=== PATIENT | male | born 1945 | race Caucasian/White ===

== ENCOUNTER → 2017-09-12 | Outpatient (CLI) | payer MEDICARE ==
[2017-09-12 13:03] LABS: HCT 36.1 % (39.0-53.0); HGB 12.2 gm/dL (13.0-17.5); MCH 29.9 pg (25.0-35.0); MCHC 33.7 g/dL (31.0-37.0); MCV 88.9 fL (80.0-100.0); Mean Platelet Volume 7.4; Platelet Count 228 k/uL (150-450); RBC 4.06 m/uL (4.30-5.90); RDW 15.4 % (11.5-15.5)
[2017-09-12 19:15] LABS: Iron Saturation 24.16 (15.00-50.00)
[2017-09-12 19:39] LABS: Folate, Serum 19.9 ng/mL
== END | disposition home or self-care (01) ==
LOC: LABWHC1 12:23
PROVIDERS: ATTEND Family Medicine
DX: K42.0 Umbilical hernia with obstruction, without gangrene (principal); D63.8 Anemia in other chronic diseases classified elsewhere; E11.65 Type 2 diabetes mellitus with hyperglycemia; Z12.12 Encounter for screening for malignant neoplasm of rectum
CPT/HCPCS: 36415; 82607; 82728; 82746; 83540; 83550; 85027

== ENCOUNTER 2017-12-13 11:05 | Inpatient (IN) | payer OTHER, MEDICARE ==
[2017-12-13] MEDS ORDERED: SODIUM CHLORIDE 0.9% 1,000 ML IV STA (11:22)
[2017-12-13] MEDS ORDERED: MORPHINE SULFATE 2 MG/ML SYRINGE IVP ONE (11:23)
[2017-12-13] MEDS ORDERED: ONDANSETRON 4 MG/2 ML VIAL IVP STA (11:23)
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
[2017-12-13 12:14] LABS: Basophils % (A) 0 %; Eosinophils % (A) 0 %; HCT 40.8 % (39.0-53.0); HGB 13.1 gm/dL (13.0-17.5); Lymphocytes # (A) 0.6 k/uL (1.0-4.8); Lymphocytes % (A) 5 %; MCHC 32.2 g/dL (31.0-37.0); MCV 93.4 fL (80.0-100.0); Mean Platelet Volume 7.4; Monocytes # (A) 0.5 k/uL (0-1.0); Monocytes % (A) 4 %; Neutrophils # (A) 10.1 k/uL (1.3-7.7); Neutrophils % (A) 89 %; Platelet Count 185 k/uL (150-450); RBC 4.37 m/uL (4.30-5.90); RDW 15.6 % (11.5-15.5); WBC 11.3 k/uL (3.8-10.6)
[2017-12-13] MEDS ORDERED: MORPHINE SULFATE 2 MG/ML SYRINGE IVP STA (12:14)
[2017-12-13 12:17] LABS: INR 1.1 (<1.2); Partial Thromboplastin Time 22.3 sec (22.0-30.0); Prothrombin Time 10.4 sec (9.0-12.0)
[2017-12-13 12:19] LABS: Albumin 4.2 g/dL (3.5-5.0); Amylase 43 U/L (30-110); Anion Gap 16 mmol/L; Carbon Dioxide 24 mmol/L (22-30); Chloride 98 mmol/L (98-107); Glucose 326 mg/dL (74-99); Lipase 34 U/L (23-300); Sodium 138 mmol/L (137-145); Total Protein 7.1 g/dL (6.3-8.2)
[2017-12-13 12:20] LABS: ALT 33 U/L (21-72); AST 29 U/L (17-59); Alkaline Phosphatase 72 U/L (38-126); Blood Urea Nitrogen 21 mg/dL (9-20)
--- NOTE | 2017-12-13 12:31 | XR ---
EXAMINATION TYPE: XR chest 2V DATE OF EXAM: 12/13/2017 HISTORY: abdominal pain. REFERENCE: Previous study dated 12/17/2014. FINDINGS: There is atelectatic change present in the right lower lobe. The lungs are overinflated. Th ere are chronic increased markings. The heart is not enlarged. Pleural spaces are clear. IMPRESSION: ATELECTATIC CHANGE, RIGHT LOWER LOBE.
[2017-12-13] MEDS ORDERED: INSULIN ASPART 100 UNIT/ML 1 ML 10 ML VIAL SQ ONE (12:38)
[2017-12-13 12:58] LABS: Glucose,Whole Blood 373 mg/dL (75-99)
[2017-12-13] MEDS ORDERED: HYDROmorphone 0.5 MG/0.5 ML SYRINGE IVP STA (13:52)
--- NOTE | 2017-12-13 14:08 | XR ---
EXAMINATION TYPE: XR thoracic spine 2V DATE OF EXAM: 12/13/2017 CLINICAL HISTORY: Fall with back pain. TECHNIQUE: Frontal, lateral, and swimmer's view of thoracic spine are obtained. COMPARISON: None. FINDINGS: There are moderate degenerative changes of the thoracic spine with anterior bridging osteop hytes that may relate to diffuse idiopathic skeletal hyperostosis. There is slight osseous deminerali zation. Vertebral bodies maintain normal vertebral body heights. Thoracic spine show satisfactory ali gnment without evidence of acute fracture or dislocation. Visualized ribs are unremarkable. IMPRESSION: No acute fracture or dislocation is seen in the thoracic spine. There is diffuse osseous demineralization, moderate multilevel degenerative change and findings suggesting diffuse idiopathic skeletal hyperostosis.
[2017-12-13 14:30] LABS: VBG PH 7.32 (7.31-7.41)
[2017-12-13 14:33] LABS: Glucose,Whole Blood 299 mg/dL (75-99)
--- NOTE | 2017-12-13 15:19 | CT ---
EXAMINATION TYPE: CT brain cspine wo con DATE OF EXAM: 12/13/2017 COMPARISON: NONE HISTORY: Head and neck pain after trip and fall [address] DLP: 1432.3 mGycm. Automated Exposure Control for Dose Reduction was Utilized. TECHNIQUE: CT scan of the head and cervical spine are performed without contrast. FINDINGS: There is a chronic-appearing CSF attenuated right subdural hygroma with 2 mm of leftward m idline shift. This is overall similar to the prior exam of 2016 although degree of sulcal prominence and cerebral atrophy has progressed. There is no acute intracranial hemorrhage, mass effect, or midli ne shift identified. No hydrocephalus. The globes are intact and the visualized sinuses are clear. Cervical spine is visualized in its entirety from C1 through upper thoracic levels and demonstrates s atisfactory alignment without evidence of acute fracture or dislocation. Prominent vascular groove is noted of C2 on the right without cortical disruption. Moderate multilevel degenerative disc disease is seen as uncovertebral hypertrophy and facet arthropathy with multilevel disc osteophyte complexes. Bridging osteophytes are seen diffusely throughout the cervical spine indicative of diffuse idiopath ic skeletal hyperostosis. Additionally there is calcification of the posterior longitudinal ligament creating moderate spinal canal stenosis from C2 through C4 and mild spinal canal stenosis at C4-C6. P revertebral soft tissue appears within normal limits. The C1-C2 articulation is unremarkable. IMPRESSION: 1. There is no acute fracture or dislocation evident in the cervical spine. 2. No acute intracranial hemorrhage, mass effect, or midline shift is seen. Chronic appearing right s ubdural hygroma with 2 mm leftward midline shift, overall similar to exam of 2016 with progression of cerebral atrophy. 3. Cervical spine degenerative change, diffuse radiographic skeletal hyperostosis, and calcification of the posterior longitudinal ligament creating moderate spinal canal stenosis from C2 through C4 and mild from C4 through C6.
--- NOTE | 2017-12-13 15:33 | CT ---
EXAMINATION TYPE: CT ChestAbdPelvis w con DATE OF EXAM: 12/13/2017 COMPARISON: NONE HISTORY: Back and chest, abdomen, and pelvis bilateral side pain after trip and fall [address] DLP: 2428.9 mGycm. Automated Exposure Control for Dose Reduction was Utilized. CONTRAST: CT scan of the thorax, abdomen and pelvis is performed with IV Contrast, patient injected with 100 mL of Isovue M300. FINDINGS: LUNGS: There is moderate centrilobular emphysematous change. Right upper lobe pulmonary nodule on ser ies 3 image 35 measures 9 mm. This is similar to exam of 08/21/2015 (also 9 mm). Additionally the know n bilobed medial right lung base pulmonary nodule elongates on image 46 and appears similar to the pr ior exam of 2016. There is a trace right pleural effusion and subsegmental bibasilar atelectasis. Chr onic peribronchial cuffing is seen, likely related to reactive airway disease of this patient with un derlying pulmonary emphysema. MEDIASTINUM: There are no greater than 1 cm hilar or mediastinal lymph nodes. No pericardial effusi on is seen. Main pulmonary artery is enlarged measuring 3.8 cm suggestive of underlying pulmonary ar terial hypertension. Moderate three-vessel coronary artery calcifications are seen. Small hiatal [place] is present. LIVER/GB: No significant abnormality is appreciated. No radiopaque calculi within the gallbladder. PANCREAS: Landin-white parenchymal atrophy is noted without ductal dilatation. SPLEEN: No significant abnormality is seen. ADRENALS: No significant abnormality is seen. KIDNEYS: Nonobstructing right renal calculi measure 3 mm in the inferior pole and mid pole. Nonobstru cting 2 mm left renal calculus is noted. Bilateral nonspecific perinephric fat stranding is seen. Rig ht inferior pole renal cyst and too small to accurately characterize upper pole renal lesion are seen . BOWEL: No dilatation of large or small bowel. No evidence of obstruction. Moderate amount retained ri ght hemicolonic stool. GENITAL ORGANS: Prostate gland is not enlarged although containing central zone calcifications. LYMPH NODES: No greater than 1cm abdominal or pelvic lymph nodes are appreciated. OSSEOUS STRUCTURES: No displaced fracture is seen. There is diffuse bridging of the vertebral bodies throughout the thoracolumbar spine compatible with diffuse idiopathic skeletal hyperostosis. Addition ally moderate to severe multilevel degenerative changes of the spine are present. OTHER: Extensive vascular calcifications are present of the abdominal aorta and its branches which is nonenlarged. There is diastases recti. IMPRESSION: 1. No acute osseous fracture, abnormal fluid collection, or evidence of solid organ injury in the tho rax, abdomen, or pelvis. 2. Stable right-sided pulmonary nodules in comparison to exam of 2016. However given moderate backgro und emphysema (high-risk patient) continued follow-up with CT thorax in 12 months is recommended to e nsure stability. 3. Bilateral nonobstructing renal calculi. 4. Trace right pleural effusion.
[2017-12-13] MEDS ORDERED: ASPIRIN 81 MG PO STA (15:54)
[2017-12-13] MEDS ORDERED: NITROGLYCERIN SL TABS 0.4 MG TAB SUBLINGUAL PRN (16:07)
[2017-12-13] MEDS ORDERED: MORPHINE SULFATE 2 MG/ML SYRINGE IV PRN (16:07)
[2017-12-13] MEDS ORDERED: hydrALAZINE HCL 20 MG/ML 1 ML VIAL IVP STA (16:17)
[2017-12-13 17:42] VITALS: BMI 36.6
[2017-12-13 18:18] LABS: Creatine Kinase MB 2.2 ng/mL (0.0-2.4)
[2017-12-13 18:21] LABS: Troponin I 0.039 ng/mL (0.000-0.034)
[2017-12-13] MEDS ORDERED: ALBUTEROL NEBULIZED 2.5 MG/3 ML INHALATION PRN (18:59)
[2017-12-13] MEDS ORDERED: KETOROLAC 30 MG/ML 1 ML VIAL IVP PRN (19:04)
[2017-12-13] MEDS: IPRATROPIUM-ALBUTEROL 3 ML NEB INHALATION PRN (20:28)
[2017-12-13] MEDS: SYMBICORT 160-4.5 MCG INHALER INHALATION SCH (20:29)
[2017-12-13] MEDS: ATORVASTATIN 20 MG TAB PO SCH (20:53)
[2017-12-13] MEDS: DOCUSATE 100 MG CAP PO SCH (20:53)
[2017-12-13] MEDS: METOPROLOL TARTRATE 25 MG TAB PO SCH (20:53)
[2017-12-13] MEDS: LATANOPROST 0.005% OPHTH DROPS 2.5 ML BTL BOTH EYES SCH (20:54)
[2017-12-13] MEDS: BRIMONIDINE TARTRATE 0.2% DROPS 5 ML BTL BOTH EYES SCH (20:55)
[2017-12-13] MEDS: DORZOLAMIDE HCL 2% DROPS 10 ML BTL BOTH EYES SCH (20:55)
[2017-12-13] MEDS: MORPHINE SULFATE 2 MG/ML SYRINGE IV PRN ×2 (21:05→23:47)
[2017-12-13 21:23] LABS: Glucose,Whole Blood 289 mg/dL (75-99)
[2017-12-13] MEDS: INSULIN DETEMIR 100 UNIT/ML 10 ML VIAL SQ SCH (21:30)
[2017-12-13] MEDS: INSULIN ASPART 100 UNIT/ML 1 ML 10 ML VIAL SQ SCH (21:30)
[2017-12-14 00:40] LABS: Appearance,Urine Clear (Clear); Bilirubin,Urine Negative (Negative); Blood,Urine Trace (Negative); Color,Urine Yellow; Glucose,Urine (UA) 4+ (Negative); Ketones,Urine Trace (Negative); Leukocyte Esterase,Urine Negative (Negative); Mucus,Urine Rare /hpf; Nitrite,Urine Negative (Negative); Protein,Urine 2+ (Negative); RBC,Urine <1 /hpf (0-5); Specific Gravity,Urine 1.031 (1.001-1.035); Urobilinogen,Urine <2.0 mg/dL (<2.0); WBC,Urine 1 /hpf (0-5)
[2017-12-14 00:44] LABS: Creatine Kinase MB 2.1 ng/mL (0.0-2.4)
[2017-12-14 00:54] LABS: Troponin I 0.042 ng/mL (0.000-0.034)
[2017-12-14] MEDS: MORPHINE SULFATE 2 MG/ML SYRINGE IV PRN ×5 (02:55→23:08)
[2017-12-14 06:19] LABS: Basophils % (A) 0 %; Eosinophils % (A) 0 %; HCT 41.7 % (39.0-53.0); HGB 13.4 gm/dL (13.0-17.5); Lymphocytes # (A) 0.7 k/uL (1.0-4.8); Lymphocytes % (A) 6 %; MCH 29.3 pg (25.0-35.0); MCHC 32.1 g/dL (31.0-37.0); MCV 91.3 fL (80.0-100.0); Mean Platelet Volume 7.6; Monocytes # (A) 0.7 k/uL (0-1.0); Monocytes % (A) 5 %; Neutrophils # (A) 10.6 k/uL (1.3-7.7); Neutrophils % (A) 88 %; Platelet Count 217 k/uL (150-450); RBC 4.57 m/uL (4.30-5.90); RDW 15.2 % (11.5-15.5); WBC 12.1 k/uL (3.8-10.6)
[2017-12-14 06:28] LABS: Albumin 4.1 g/dL (3.5-5.0); Calcium 9.2 mg/dL (8.4-10.2); Potassium 4.7 mmol/L (3.5-5.1); Total Bilirubin 0.7 mg/dL (0.2-1.3)
[2017-12-14] MEDS: INSULIN ASPART 100 UNIT/ML 1 ML 10 ML VIAL SQ SCH ×4 (06:39→20:58)
[2017-12-14 06:46] LABS: Glucose,Whole Blood 261 mg/dL (75-99)
[2017-12-14] MEDS: IPRATROPIUM-ALBUTEROL 3 ML NEB INHALATION PRN ×2 (07:34→20:13)
[2017-12-14] MEDS: SYMBICORT 160-4.5 MCG INHALER INHALATION SCH ×2 (07:34→20:13)
[2017-12-14] MEDS: BRIMONIDINE TARTRATE 0.2% DROPS 5 ML BTL BOTH EYES SCH ×2 (08:30→21:12)
[2017-12-14] MEDS: CLOPIDOGREL 75 MG TAB PO SCH (08:30)
[2017-12-14] MEDS: ASPIRIN 325 MG TAB PO SCH (08:30)
[2017-12-14] MEDS: DORZOLAMIDE HCL 2% DROPS 10 ML BTL BOTH EYES SCH ×2 (08:31→20:51)
[2017-12-14] MEDS: METOPROLOL TARTRATE 25 MG TAB PO SCH ×2 (08:31→20:52)
[2017-12-14] MEDS: LISINOPRIL-HCTZ 20-25 MG 1 EACH TAB PO SCH (08:31)
[2017-12-14] MEDS: DOCUSATE 100 MG CAP PO SCH ×2 (08:31→20:52)
[2017-12-14] MEDS: CYANOCOBALAMIN 500 MCG TAB PO SCH (08:31)
[2017-12-14] MEDS: FERROUS SULFATE 325 MG TAB PO SCH (08:31)
[2017-12-14] MEDS: MONTELUKAST 10 MG TAB PO SCH (08:32)
[2017-12-14 11:51] LABS: Glucose,Whole Blood 286 mg/dL (75-99)
--- NOTE | 2017-12-14 13:26 | P.HPIM ---
History of Present Illness H&P Date: 12/14/17 Chief Complaint: And controlled back pain and shortness of breath This Is a 72-year-old white male well-known to me. He sees myself, was a patient of my former partner, Tanika Luu. He also sees the physician's clinical project assistant [facility] [place]. The patient indicates that he fell and tripped over a bicycle 3 days ago falling backwards onto his spine. He denied hitting his head. Denies any loss of consciousness. He denied any chest pains. He does have ongoing shortness of breath due to underlying COPD. He indicates it's been worse since his fall. He has a history of low back pain and intermittently takes Helotes for this. He says been intractable and is radiating down the front of his thighs currently. He also is complaining of anorexia. He denies any vomiting or nausea recently. He has a history of myocardial infarction in 2014. Currently he feels a little better, but is unable to stand. He says his shortness of breath is slightly improved. The morphine is somewhat controlling his pain. Currently on 2 L oxygen via nasal cannula. Review of Systems All systems: negative Past Medical History Past Medical History: Coronary Artery Disease (CAD), COPD, Diabetes Mellitus, Eye Disorder ([place]), Hyperlipidemia, Hypertension, Myocardial Infarction ([place]), Osteoarthritis (OA), Renal Disease Additional Past Medical History / Comment(s): "medical history per pt", left leg wound, kidney stone. Glaucoma Last Myocardial Infarction Date:: 12/14/2014 History of Any Multi-Drug Resistant Organisms: None Reported Past Surgical History: Ear Surgery, Heart Catheterization With Stent, Hernia Repair Additional Past Surgical History / Comment(s): Cataracts, chronic low back pain Past Anesthesia/Blood Transfusion Reactions: No Reported Reaction Date of Last Stent Placement:: 2011 Past Psychological History: No Psychological Hx Reported Smoking Status: Former smoker Past Alcohol Use History: None Reported Past Drug Use History: None Reported - Past Family History Father History Unknown: Yes Mother Family Medical History: Diabetes Mellitus Medications and Allergies Home Medications Medication Instructions Recorded Confirmed Type Insulin Glargine [Lantus] 120 unit SQ HS 12/14/14 12/13/17 History Latanoprost Ophth [Xalatan 0.005%] 1 drops BOTH EYES HS 12/14/14 12/13/17 History glipiZIDE [Glucotrol] 20 mg PO BID 12/14/14 12/13/17 History Albuterol Inhaler [Ventolin Hfa 2 puff INHALATION RT-Q6H PRN 05/13/17 12/13/17 History Inhaler] Budesonide-Formot 160-4.5 Mcg 2 puff INHALATION RT-BID 05/13/17 12/13/17 History [Symbicort 160-4.5 Mcg Inhaler] Clopidogrel [Plavix] 75 mg PO DAILY 05/13/17 12/13/17 History Cyanocobalamin [Vitamin B-12] 500 mcg PO DAILY 05/13/17 12/13/17 History Lisinopril-Hctz 20-25 mg 1 tab PO DAILY 05/13/17 12/13/17 History [Zestoretic 20-25] Montelukast [Singulair] 10 mg PO DAILY 05/13/17 12/13/17 History Docusate [Colace] 100 mg PO BID #20 capsule 05/21/17 12/13/17 Rx HYDROcodone/APAP 7.5-325MG [Helotes 1 each PO Q4H PRN #30 tab 05/21/17 12/13/17 Rx 7.5] Atorvastatin [Lipitor] 20 mg PO HS 12/13/17 12/13/17 History Brimonidine Tartrate [Alphagan P 1 drops BOTH EYES BID 12/13/17 12/13/17 History 0.2% Ophth Soln] Dextrose Chew [Glucose Chew Tab] 4 - 12 gm PO ONCE PRN 12/13/17 12/13/17 History Dorzolamide 2% [Trusopt 2%] 1 drops BOTH EYES BID 12/13/17 12/13/17 History Ferrous Sulfate [Feosol] 325 mg PO DAILY 12/13/17 12/13/17 History Insulin Aspart [NovoLOG Flexpen] See Protocol SQ ACHS 12/13/17 12/13/17 History Ipratropium-Albuterol Nebulize 3 ml INHALATION RT-BID PRN 12/13/17 12/13/17 History [Duoneb 0.5 mg-3 mg/3 ml Soln] Metoprolol Tartrate [Lopressor] 75 mg PO BID 12/13/17 12/13/17 History Allergies Allergy/AdvReac Type Severity Reaction Status Date / Time No Known Allergies Allergy Verified 12/13/17 16:37 Physical Exam Vitals: Vital Signs Temp Pulse Pulse Resp BP BP Pulse Ox 12/14/17 08:00 67 19 12/14/17 07:56 98 F 67 166/77 92 L 12/14/17 07:45 80 12/14/17 07:36 76 12/14/17 03:21 72 19 12/14/17 03:20 97.4 F L 72 19 194/83 95 12/14/17 00:00 98.0 F 78 18 153/65 96 12/13/17 20:47 79 12/13/17 20:31 79 12/13/17 20:00 97.9 F 82 19 182/81 95 12/13/17 16:56 76 169/74 95 12/13/17 16:51 97.4 F L 80 16 192/66 91 L 12/13/17 16:20 68 22 202/86 95 12/13/17 14:19 76 20 183/79 100 Intake and Output 12/13/17 12/14/17 12/14/17 22:59 06:59 14:59 Output Total 300 0 Balance -300 0 Output: Urine 300 0 Stool 0 Urine/Stool Mix 0 Emesis 0 Oral Regurgitation 0 Other: Voiding Method Urinal Urinal Urinal # Voids 3 0 # Bowel Movements 0 Weight 129.3 kg 53.5 kg GENERAL: Fatigued and in mild distress due to pain. HEAD: Atraumatic, normocephalic. EYES: Pupils equal round and reactive to light, extraocular movements intact, sclera anicteric, conjunctiva are normal. ENT:nares patent, oropharynx clear without exudates. Moist mucous membranes. NECK: Somewhat decreased range of motion, but no significant pain, supple without lymphadenopathy or JVD, no thyromegaly LUNGS: Breath sounds are coarse with decreased breath exchange consistent with his COPD, there is no active wheezes rales or crackles this time. HEART: Regular rate and rhythm without murmurs, rubs or gallops.S1S2 Normal ABDOMEN: Soft, nontender, normoactive bowel sounds. No guarding, no rebound. No masses appreciated. EXTREMITIES: range of motion is grossly normal this time, no pitting or edema. No clubbing or cyanosis. Back is free from ecchymosis, erythema, or significant edema. There is no significant pain to palpation of his spine NEUROLOGICAL: Cranial nerves II through XII grossly intact. Normal speech, normal gait. PSYCH: Normal mood, normal affect. SKIN: Warm, Dry, normal turgor, no rashes or lesions noted. Results CBC & Chem 7: 12/14/17 05:34 12/14/17 05:34 Labs: Abnormal Lab Results - Last 24 Hours (Table) 12/13/17 12/13/17 12/13/17 Range/Units 14:00 14:23 17:34 WBC (3.8-10.6) k/uL Neutrophils # (1.3-7.7) k/uL Lymphocytes # (1.0-4.8) k/uL VBG pCO2 53 H (37-51) mmHg Chloride (98-107) mmol/L BUN (9-20) mg/dL Glucose (74-99) mg/dL POC Glucose (mg/dL) 299 H (75-99) mg/dL Troponin I 0.039 H* (0.000-0.034) ng/mL Triglycerides (<150) mg/dL Urine Protein (Negative) Urine Glucose (UA) (Negative) Urine Ketones (Negative) Urine Blood (Negative) Urine Mucus (None) /hpf 12/13/17 12/13/17 12/13/17 Range/Units 21:20 23:45 23:51 WBC (3.8-10.6) k/uL Neutrophils # (1.3-7.7) k/uL Lymphocytes # (1.0-4.8) k/uL VBG pCO2 (37-51) mmHg Chloride (98-107) mmol/L BUN (9-20) mg/dL Glucose (74-99) mg/dL POC Glucose (mg/dL) 289 H (75-99) mg/dL Troponin I 0.042 H* (0.000-0.034) ng/mL Triglycerides (<150) mg/dL Urine Protein 2+ H (Negative) Urine Glucose (UA) 4+ H (Negative) Urine Ketones Trace H (Negative) Urine Blood Trace H (Negative) Urine Mucus Rare H (None) /hpf 12/14/17 12/14/17 12/14/17 Range/Units 05:34 05:34 06:35 WBC 12.1 H (3.8-10.6) k/uL Neutrophils # 10.6 H (1.3-7.7) k/uL Lymphocytes # 0.7 L (1.0-4.8) k/uL VBG pCO2 (37-51) mmHg Chloride 97 L (98-107) mmol/L BUN 26 H (9-20) mg/dL Glucose 248 H (74-99) mg/dL POC Glucose (mg/dL) 261 H (75-99) mg/dL Troponin I (0.000-0.034) ng/mL Triglycerides 164 H (<150) mg/dL Urine Protein (Negative) Urine Glucose (UA) (Negative) Urine Ketones (Negative) Urine Blood (Negative) Urine Mucus (None) /hpf 12/14/17 Range/Units 11:48 WBC (3.8-10.6) k/uL Neutrophils # (1.3-7.7) k/uL Lymphocytes # (1.0-4.8) k/uL VBG pCO2 (37-51) mmHg Chloride (98-107) mmol/L BUN (9-20) mg/dL Glucose (74-99) mg/dL POC Glucose (mg/dL) 286 H (75-99) mg/dL Troponin I (0.000-0.034) ng/mL Triglycerides (<150) mg/dL Urine Protein (Negative) Urine Glucose (UA) (Negative) Urine Ketones (Negative) Urine Blood (Negative) Urine Mucus (None) /hpf Chest x-ray: report reviewed CT scan - abdomen: report reviewed CT scan - chest: report reviewed CT Scan - head: report reviewed CT scan - pelvis: report reviewed Thrombosis Risk Factor Assmnt - DVT/VTE Prophylaxis DVT/VTE Prophylaxis: Mechanical Prophylaxis ordered - Choose All That Apply Any of the Below Risk Factors Present?: Yes Each Factor Represents 1 point: Abnormal pulmonary function (COPD), Obesity ( BMI >25) Each Risk Factor Represents 2 Points: Age 61-74 years Thrombosis Risk Factor Assessment Total Risk Factor Score: 4 Thrombosis Risk Factor Assessment Level: Moderate Risk Assessment and Plan (1) Diabetes mellitus Current Visit: Yes Status: Acute Code(s): E11.9 - TYPE 2 DIABETES MELLITUS WITHOUT COMPLICATIONS SNOMED Code(s): 03608762 (2) Leukocytosis Current Visit: Yes Status: Acute Code(s): D72.829 - ELEVATED WHITE BLOOD CELL COUNT, UNSPECIFIED SNOMED Code(s): 306482054 (3) Coronary heart disease Current Visit: Yes Status: Acute Code(s): I25.10 - ATHSCL HEART DISEASE OF [place] CORONARY ARTERY W/O ANG PCTRS SNOMED Code(s): 57427001 (4) Elevated troponin Current Visit: Yes Status: Acute Code(s): R74.8 - ABNORMAL LEVELS OF OTHER SERUM ENZYMES SNOMED Code(s): 212092042 (5) Fall Current Visit: Yes Status: Acute Code(s): W19.XXXA - UNSPECIFIED FALL, INITIAL ENCOUNTER SNOMED Code(s): 1600877 (6) Intractable pain Current Visit: Yes Status: Acute Code(s): R52 - PAIN, UNSPECIFIED SNOMED Code(s): 74140951 Plan: While his troponins are slightly abnormal, we'll continue to monitor these. Should they become more elevated, or she develop any chest pains or other symptoms, we'll plan a consult and cardiology. I will discontinue Toradol, given for pain, and add Solu-Medrol. I will drop his morphine and restart Helotes. We will order physical therapy for him. We will repeat a chest x-ray in a.m. to rule out occult pneumonia. We'll give him 1 dose of Rocephin at this time and monitor his white blood cell count. Continue on NovoLog sliding scale, and a reduced dose of his Levemir at this time. This may need to be increased soon. He will be reevaluated next 24 hours.
[2017-12-14] MEDS ORDERED: NA PHOS,M-B/NA PHOS,DI-BA 133 ML ENEMA RECTAL ONE (14:00)
[2017-12-14] MEDS: SODIUM CHLORIDE 0.9% 1,000 ML IV SCH (14:42)
[2017-12-14] MEDS: cefTRIAXone IN SWFI 1,000 MG/10 ML SYRINGE IVP SCH (14:43)
[2017-12-14] MEDS: methylPREDNISolone SOD SUCCI 125 MG/2 ML VIAL IV SCH ×3 (14:43→23:05)
[2017-12-14] MEDS: POLYETHYLENE GLYCOL 3350 17 GM POWD.PACK PO SCH (14:46)
[2017-12-14 16:21] LABS: Glucose,Whole Blood 313 mg/dL (75-99)
[2017-12-14 20:41] LABS: Glucose,Whole Blood 254 mg/dL (75-99)
[2017-12-14] MEDS: ATORVASTATIN 20 MG TAB PO SCH (20:52)
[2017-12-14] MEDS: INSULIN DETEMIR 100 UNIT/ML 10 ML VIAL SQ SCH (20:57)
[2017-12-14] MEDS: LATANOPROST 0.005% OPHTH DROPS 2.5 ML BTL BOTH EYES SCH (21:00)
[2017-12-15] MEDS: IPRATROPIUM-ALBUTEROL 3 ML NEB INHALATION PRN ×2 (01:24→15:11)
[2017-12-15] MEDS: MORPHINE SULFATE 2 MG/ML SYRINGE IV PRN ×2 (03:04→06:38)
[2017-12-15] MEDS: SODIUM CHLORIDE 0.9% 1,000 ML IV SCH (03:38)
[2017-12-15] MEDS ORDERED: FUROSEMIDE 10 MG/ML 2 ML VIAL IV ONE (05:38)
[2017-12-15] MEDS: methylPREDNISolone SOD SUCCI 125 MG/2 ML VIAL IV SCH ×4 (05:48→23:05)
[2017-12-15 06:01] LABS: Glucose,Whole Blood 347 mg/dL (75-99)
[2017-12-15 06:33] LABS: Basophils % (A) 0 %; Eosinophils % (A) 0 %; HCT 43.3 % (39.0-53.0); HGB 13.8 gm/dL (13.0-17.5); Lymphocytes # (A) 0.7 k/uL (1.0-4.8); Lymphocytes % (A) 6 %; MCH 28.9 pg (25.0-35.0); MCHC 31.8 g/dL (31.0-37.0); MCV 90.7 fL (80.0-100.0); Mean Platelet Volume 7.7; Monocytes # (A) 0.5 k/uL (0-1.0); Monocytes % (A) 4 %; Neutrophils # (A) 10.3 k/uL (1.3-7.7); Neutrophils % (A) 89 %; Platelet Count 251 k/uL (150-450); RBC 4.77 m/uL (4.30-5.90); RDW 15.1 % (11.5-15.5); WBC 11.6 k/uL (3.8-10.6)
[2017-12-15 06:37] LABS: Calcium 9.2 mg/dL (8.4-10.2); Phosphorus 4.1 mg/dL (2.5-4.5); Potassium 4.5 mmol/L (3.5-5.1)
[2017-12-15] MEDS: INSULIN ASPART 100 UNIT/ML 1 ML 10 ML VIAL SQ SCH ×4 (06:38→21:16)
--- NOTE | 2017-12-15 06:38 | XR ---
EXAMINATION TYPE: XR chest 2V DATE OF EXAM: 12/15/2017 COMPARISON: 12/13/2017 HISTORY: Fluid overload TECHNIQUE: Frontal and lateral views of the chest are obtained. FINDINGS: There is poor inspiration. There is some atelectasis at the lung bases. There is no gross heart failure. There is coarsening of interstitial pulmonary markings. This is consistent with some d egree of pulmonary congestion. There are chest leads. There is a small amount of fluid in the right m ajor fissure. IMPRESSION: Small pleural effusions. Inspiration is much less than last exam. The pulmonary vascular ity is increased slightly compared to last exam and consistent with fluid overload.
--- NOTE | 2017-12-15 08:24 | P.CRDCN ---
History of Present Illness Consult date: 12/15/17 Requesting physician: Javi Kirkland Reason for Consult (text): Abnormal troponins Chief complaint: Fall History of present illness: This is a 72-year-old gentleman with history of diabetes, hypertension , hyperlipidemia, coronary artery disease with prior stent placements, patient underwent stenting of the circumflex and right coronary artery in December 2014, he used to follow with Dr. Keita in the office, he now sees Dr. Gupta. Patient presented to the hospital on this occasion after he experienced a fall. He states that he was in his garage, tripped over a bicycle and fell backwards onto his back. He denies hitting his head. He does feel that he lost consciousness for a brief period of time after falling but not prior. Patient denies having any chest discomfort prior to this incident. Cardiology consultation was requested because of abnormal troponins. EKG performed on admission here showed a sinus rhythm with second-degree type I heart block. Subsequent EKG shows a normal sinus rhythm. Upon review of the rhythm strips in the chart, patient is noted to have multiple pauses of up to 3-1/2 seconds. Initial chest x-ray performed on admission here shows atelectatic change in the right lower lobe. Subsequent EKG shows small pleural effusions and pulmonary vascularity has increased slightly as compared with prior exam. Thoracic spine x-ray did not reveal any evidence of acute fracture or dislocation. Computed tomography scan of the abdomen and chest and pelvis was performed which did not reveal any acute osseous fracture, abnormal fluid collection, or evidence of solid organ injury in the thorax abdomen or pelvis. Stable right sided pulmonary nodules are noted, similar as comparison 2016. Bilateral nonobstructing renal calculi and a trace of right pleural effusion. Blood pressure on arrival here 190/80 with a heart rate in the 70s, 94% on room air. Blood pressure this morning 150/80 heart rate in the 70s 92% on 2 L of oxygen. White blood cell count 11.6, hemoglobin 13.8, platelet count 251. Sodium 137, potassium 4.5, BUN 45, creatinine 1.2. Blood glucose levels in the 300 range. Troponins 0.05, 0.03, 0.04, 0.03, 0.02, 0.02. At the time of my examination this morning, patient states earlier he was mildly confused, he is aware of where he is now. Complaining of back discomfort discomfort in his bilateral hips. He denies any dizziness or lightheadedness, mild shortness of breath, no chest discomfort. Past Medical History Past Medical History: Coronary Artery Disease (CAD), COPD, Diabetes Mellitus, Eye Disorder ([place]), Hyperlipidemia, Hypertension, Myocardial Infarction ([place]), Osteoarthritis (OA), Renal Disease Additional Past Medical History / Comment(s): "medical history per pt", left leg wound, kidney stone. Glaucoma Last Myocardial Infarction Date:: 12/14/2014 History of Any Multi-Drug Resistant Organisms: None Reported Past Surgical History: Ear Surgery, Heart Catheterization With Stent, Hernia Repair Additional Past Surgical History / Comment(s): Cataracts, chronic low back pain Past Anesthesia/Blood Transfusion Reactions: No Reported Reaction Date of Last Stent Placement:: 2011 Past Psychological History: No Psychological Hx Reported Smoking Status: Former smoker Past Alcohol Use History: None Reported Past Drug Use History: None Reported - Past Family History Father History Unknown: Yes Mother Family Medical History: Diabetes Mellitus Medications and Allergies Home Medications Medication Instructions Recorded Confirmed Type Insulin Glargine [Lantus] 120 unit SQ HS 12/14/14 12/13/17 History Latanoprost Ophth [Xalatan 0.005%] 1 drops BOTH EYES HS 12/14/14 12/13/17 History glipiZIDE [Glucotrol] 20 mg PO BID 12/14/14 12/13/17 History Albuterol Inhaler [Ventolin Hfa 2 puff INHALATION RT-Q6H PRN 05/13/17 12/13/17 History Inhaler] Budesonide-Formot 160-4.5 Mcg 2 puff INHALATION RT-BID 05/13/17 12/13/17 History [Symbicort 160-4.5 Mcg Inhaler] Clopidogrel [Plavix] 75 mg PO DAILY 05/13/17 12/13/17 History Cyanocobalamin [Vitamin B-12] 500 mcg PO DAILY 05/13/17 12/13/17 History Lisinopril-Hctz 20-25 mg 1 tab PO DAILY 05/13/17 12/13/17 History [Zestoretic 20-25] Montelukast [Singulair] 10 mg PO DAILY 05/13/17 12/13/17 History Docusate [Colace] 100 mg PO BID #20 capsule 05/21/17 12/13/17 Rx HYDROcodone/APAP 7.5-325MG [[place] 1 each PO Q4H PRN #30 tab 05/21/17 12/13/17 Rx 7.5] Atorvastatin [Lipitor] 20 mg PO HS 12/13/17 12/13/17 History Brimonidine Tartrate [Alphagan P 1 drops BOTH EYES BID 12/13/17 12/13/17 History 0.2% Ophth Soln] Dextrose Chew [Glucose Chew Tab] 4 - 12 gm PO ONCE PRN 12/13/17 12/13/17 History Dorzolamide 2% [Trusopt 2%] 1 drops BOTH EYES BID 12/13/17 12/13/17 History Ferrous Sulfate [Feosol] 325 mg PO DAILY 12/13/17 12/13/17 History Insulin Aspart [NovoLOG Flexpen] See Protocol SQ ACHS 12/13/17 12/13/17 History Ipratropium-Albuterol Nebulize 3 ml INHALATION RT-BID PRN 12/13/17 12/13/17 History [Duoneb 0.5 mg-3 mg/3 ml Soln] Metoprolol Tartrate [Lopressor] 75 mg PO BID 12/13/17 12/13/17 History Allergies Allergy/AdvReac Type Severity Reaction Status Date / Time No Known Allergies Allergy Verified 12/13/17 16:37 Physical Exam Vitals: Vital Signs Temp Pulse Pulse Resp BP Pulse Ox 12/15/17 03:42 76 19 12/15/17 03:38 97.1 F L 76 19 151/82 92 L 12/15/17 01:38 74 12/15/17 01:26 70 12/15/17 00:00 97.2 F L 74 20 136/65 92 L 12/14/17 20:35 70 12/14/17 20:16 70 95 12/14/17 20:00 97 F L 78 20 159/75 96 12/14/17 16:00 97.9 F 69 20 161/87 95 12/14/17 12:00 97.1 F L 74 20 122/71 93 L 12/14/17 08:00 67 19 Intake and Output 07/08/18 07/09/18 07/09/18 22:59 06:59 14:59 Intake Total 850 Output Total 275 400 Balance -275 450 Intake: Intake, IV Titration 450 Amount Sodium Chloride 0.9% 1, 450 000 ml @ 75 mls/hr IV . [id number] [facility] Rx#:[id number] Oral 400 Output: Urine 275 400 Stool 0 0 Urine/Stool Mix 0 Emesis 0 Other: Voiding Method Urinal Urinal # Voids 1 # Bowel Movements 0 Weight 125.8 kg PHYSICAL EXAMINATION: GENERAL: 72-year-old male, complaining of generalized of back and hip discomfort this morning. HEENT: Head is atraumatic, normocephalic. Pupils equal, round. Sclera anicteric. Conjunctiva are clear. Mucous membranes of the mouth are moist. Neck is supple. There is elevated jugular venous pressure.] No carotid bruit is heard. HEART EXAMINATION: Heart S1 S2 1 systolic murmur is heard. CHEST EXAMINATION: Lungs reveal crackles bilaterally with diminished air entry to the bases. ABDOMEN: Soft, nontender. Bowel sounds are heard. No organomegaly noted. EXTREMITIES: 2+ peripheral pulses with no evidence of peripheral edema and no calf tenderness noted. Positive back and bilateral hip pain NEUROLOGIC patient is awake, alert and oriented OX3. . Results 12/15/17 05:50 12/15/17 05:50 Cardiac Enzymes 12/14/17 12/14/17 12/15/17 Range/Units 13:05 19:25 01:05 Troponin I 0.037 H* 0.025 0.027 (0.000-0.034) ng/mL CBC 12/15/17 Range/Units 05:50 WBC 11.6 H (3.8-10.6) k/uL RBC 4.77 (4.30-5.90) m/uL Hgb 13.8 (13.0-17.5) gm/dL Hct 43.3 (39.0-53.0) % Plt Count 251 (150-450) k/uL Comprehensive Metabolic Panel 12/15/17 Range/Units 05:50 Sodium 137 (137-145) mmol/L Potassium 4.5 (3.5-5.1) mmol/L Chloride 98 (98-107) mmol/L Carbon Dioxide 24 (22-30) mmol/L BUN 45 H (9-20) mg/dL Creatinine 1.20 (0.66-1.25) mg/dL Glucose 297 H (74-99) mg/dL Calcium 9.2 (8.4-10.2) mg/dL Current Medications Generic Name Dose Route Start Last Admin Trade Name Freq PRN Reason Stop Dose Admin Albuterol Sulfate 2 mg 12/13/17 18:59 Ventolin Nebulized INHALATION RT-Q6H PRN Shortness Of Breath Or Wheezing Albuterol/Ipratropium 3 ml 12/13/17 18:59 12/15/17 01:24 Duoneb 0.5 Mg-3 Mg/3 Ml Soln INHALATION 3 ml RT-BID PRN Administration Shortness Of Breath Aspirin 325 mg 12/14/17 09:00 12/14/17 08:30 Aspirin PO 325 mg DAILY ROXANNE Administration Atorvastatin Calcium 20 mg 12/13/17 21:00 12/14/17 20:52 Lipitor PO 20 mg HS ROXANNE Administration Brimonidine Tartrate 1 drops 12/13/17 21:00 12/14/17 21:12 Alphagan P 0.2% Ophth Soln BOTH EYES 1 drops BID ROXANNE Administration Budesonide/Formoterol Fumarate 2 puff 12/13/17 20:00 12/14/17 20:13 Symbicort 160-4.5 Mcg Inhaler INHALATION 2 puff RT-BID ROXANNE Administration Ceftriaxone Sodium 1,000 mg 12/14/17 14:00 12/14/17 14:43 Rocephin IVP 1,000 mg Q24HR ROXANNE Administration Clopidogrel Bisulfate 75 mg 12/14/17 09:00 12/14/17 08:30 Plavix PO 75 mg DAILY ROXANNE Administration Cyanocobalamin 500 mcg 12/14/17 09:00 12/14/17 08:31 Vitamin B-12 PO 500 mcg DAILY ROXANNE Administration Docusate Sodium 100 mg 12/13/17 21:00 12/14/17 20:52 Colace PO 100 mg BID ROXANNE Administration Dorzolamide HCl 1 drops 12/13/17 21:00 12/14/17 20:51 Trusopt BOTH EYES 1 drops BID ROXANNE Administration Ferrous Sulfate 325 mg 12/14/17 09:00 12/14/17 08:31 Feosol PO 325 mg DAILY ROXANNE Administration Lisinopril/HCTZ 1 each 12/14/17 09:00 12/14/17 08:31 Zestoretic 20-25 PO 1 each DAILY ROXANNE Administration Sodium Chloride 1,000 mls @ 75 mls/hr 12/14/17 13:30 12/15/17 03:38 Saline 0.9% IV Not Given .[id number] ROXANNE Insulin Aspart 0 unit 12/13/17 21:00 12/15/17 06:38 Novolog SQ 1 unit ACHS ROXANNE Administration Protocol Insulin Detemir 60 unit 12/13/17 21:00 12/14/17 20:57 Levemir SQ 60 unit HS ROXANNE Administration Latanoprost 1 drops 12/13/17 21:00 12/14/17 21:00 Xalatan 0.005% BOTH EYES 1 drops HS ROXANNE Administration Methylprednisolone Sodium Succinate 60 mg 12/14/17 13:30 12/15/17 05:48 Solu-Medrol IV 60 mg Q6HR ROXANNE Administration Metoprolol Tartrate 75 mg 12/13/17 21:00 12/14/17 20:52 Lopressor PO 75 mg BID ROXANNE Administration Montelukast Sodium 10 mg 12/14/17 09:00 12/14/17 08:32 Singulair PO 10 mg DAILY ROXANNE Administration Morphine Sulfate 4 mg 12/13/17 19:06 12/15/17 06:38 Morphine Sulfate (Inj) IV 4 mg Q3HR PRN Administration Pain Scale 6 to 10 Nitroglycerin 0.4 mg 12/13/17 16:07 Nitrostat SUBLINGUAL Q5M PRN Chest Pain Polyethylene Glycol 17 gm 12/14/17 13:30 12/14/17 14:46 Miralax PO 17 gm DAILY ROXANNE Administration Intake and Output 12/14/17 12/15/17 12/15/17 22:59 06:59 14:59 Intake Total 850 Output Total 275 400 Balance -275 450 Intake: Intake, IV Titration 450 Amount Sodium Chloride 0.9% 1, 450 000 ml @ 75 mls/hr IV . [id number] [facility] Rx#:[id number] Oral 400 Output: Urine 275 400 Stool 0 0 Urine/Stool Mix 0 Emesis 0 Other: Voiding Method Urinal Urinal # Voids 1 # Bowel Movements 0 Weight 125.8 kg 12/15/17 05:50 12/15/17 05:50 EKG Interpretations (text) Initial EKG shows a sinus rhythm with second-degree type I heart block, subsequent EKG shows normal sinus rhythm Assessment and Plan Plan: Assessment and plan #1 fall with possible syncope. Evidence of second-degree type I heart block on initial EKG. Patient also noted to have pauses of up to 3-1/2 seconds. On Lopressor 75 mg twice a day. #2 known history of coronary artery disease with prior circumflex and RCA stenting in 2014 #3 hypertension #4 diabetes, uncontrolled #5 hyperlipidemia #6 mild renal insufficiency #7 abnormal troponin, not consistent with acute coronary syndrome, patient denies any symptoms of chest discomfort. Plan We will hold the patient's Lopressor, we will also obtain a TSH level and echocardiogram with Doppler study. Because of the patient's history of coronary artery disease and known hypertension, he will require being on a beta deb, And therefore may require implantation of a permanent pacemaker. Further recommendations will be based on these findings and the patient's clinical course. DNP note has been reviewed, I agree with a documented findings and plan of care. Patient was seen and examined.
[2017-12-15] MEDS: SYMBICORT 160-4.5 MCG INHALER INHALATION SCH ×2 (08:46→20:18)
[2017-12-15] MEDS: MONTELUKAST 10 MG TAB PO SCH (09:45)
[2017-12-15] MEDS: CLOPIDOGREL 75 MG TAB PO SCH (09:45)
[2017-12-15] MEDS: cefTRIAXone IN SWFI 1,000 MG/10 ML SYRINGE IVP SCH (09:45)
[2017-12-15] MEDS: DORZOLAMIDE HCL 2% DROPS 10 ML BTL BOTH EYES SCH ×2 (09:45→19:41)
[2017-12-15] MEDS: FERROUS SULFATE 325 MG TAB PO SCH (09:45)
[2017-12-15] MEDS: POLYETHYLENE GLYCOL 3350 17 GM POWD.PACK PO SCH (09:45)
[2017-12-15] MEDS: LISINOPRIL-HCTZ 20-25 MG 1 EACH TAB PO SCH (09:45)
[2017-12-15] MEDS: ASPIRIN 325 MG TAB PO SCH (09:45)
[2017-12-15] MEDS: BRIMONIDINE TARTRATE 0.2% DROPS 5 ML BTL BOTH EYES SCH ×2 (09:46→21:16)
[2017-12-15] MEDS: DOCUSATE 100 MG CAP PO SCH ×2 (09:47→19:42)
[2017-12-15] MEDS: CYANOCOBALAMIN 500 MCG TAB PO SCH (09:47)
[2017-12-15 11:17] LABS: Glucose,Whole Blood 375 mg/dL (75-99)
[2017-12-15] MEDS: HYDROcodone/APAP 7.5-325MG 1 EACH TAB PO PRN ×2 (13:00→19:45)
[2017-12-15] MEDS ORDERED: BISACODYL 5 MG TABLET.DR PO STA (13:28)
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
--- NOTE | 2017-12-15 15:02 | XR ---
EXAMINATION TYPE: XR Hip Bilateral and AP pelvis DATE OF EXAM: 12/15/2017 COMPARISON: NONE HISTORY: Severe hip and pelvic pain. TECHNIQUE: A single AP view of the pelvis is obtained. Two views of the left hip are obtained. FINDINGS: There is no acute fracture/dislocation evident in the pelvis. Moderate to severe degenerat jr changes of the lumbosacral junction are also seen. The hip and sacroiliac joints demonstrate deg enerative changes. Mild sacroiliac joint sclerosis is seen. There is no sacroiliac joint space wideni ng. With regards to the bilateral femurs there is cephalad joint space narrowing, acetabular roof scl erosis and acetabular osteophytes. Small femoral osteophytes are also seen. There is no suspicious os seous lesion identified of either hip. There is a protuberant osseous deformity of the left femoral h ead neck junction related to a cam deformity. This predisposes the patient to internal impingement. Two views of left hip show no acute fracture or dislocation. No focal lytic or sclerotic lesion seen in the proximal left femur. The overlying soft tissue is unremarkable. IMPRESSION: There is no acute fracture or dislocation in the pelvis or either hip. 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
[2017-12-15 16:26] LABS: Glucose,Whole Blood 360 mg/dL (75-99)
[2017-12-15] MEDS: ATORVASTATIN 20 MG TAB PO SCH (19:42)
[2017-12-15] MEDS: LATANOPROST 0.005% OPHTH DROPS 2.5 ML BTL BOTH EYES SCH (19:46)
[2017-12-15] MEDS ORDERED: INSULIN DETEMIR 100 UNIT/ML 10 ML VIAL SQ SCH (21:00)
[2017-12-15 21:11] LABS: Glucose,Whole Blood 331 mg/dL (75-99)
[2017-12-16] MEDS: HYDROcodone/APAP 7.5-325MG 1 EACH TAB PO PRN ×4 (04:32→21:26)
[2017-12-16 05:58] LABS: Glucose,Whole Blood 337 mg/dL (75-99)
[2017-12-16 06:14] LABS: Basophils % (A) 0 %; Eosinophils % (A) 0 %; HCT 41.1 % (39.0-53.0); HGB 13.6 gm/dL (13.0-17.5); Lymphocytes % (A) 7 %; MCH 30.4 pg (25.0-35.0); MCHC 33.1 g/dL (31.0-37.0); MCV 91.9 fL (80.0-100.0); Mean Platelet Volume 7.6; Monocytes # (A) 0.7 k/uL (0-1.0); Monocytes % (A) 5 %; Neutrophils # (A) 12.7 k/uL (1.3-7.7); Neutrophils % (A) 87 %; Platelet Count 258 k/uL (150-450); RBC 4.48 m/uL (4.30-5.90); RDW 15.5 % (11.5-15.5); WBC 14.5 k/uL (3.8-10.6)
[2017-12-16] MEDS: IPRATROPIUM-ALBUTEROL 3 ML NEB INHALATION PRN ×2 (06:21→19:57)
[2017-12-16 06:22] LABS: Albumin 4.1 g/dL (3.5-5.0); Calcium 9.4 mg/dL (8.4-10.2); Total Bilirubin 0.8 mg/dL (0.2-1.3); Total Protein 7.2 g/dL (6.3-8.2)
[2017-12-16] MEDS: methylPREDNISolone SOD SUCCI 125 MG/2 ML VIAL IV SCH ×2 (06:32→21:56)
[2017-12-16] MEDS: INSULIN ASPART 100 UNIT/ML 1 ML 10 ML VIAL SQ SCH ×6 (06:33→21:26)
[2017-12-16] MEDS: PANTOPRAZOLE 40 MG TABLET PO SCH (06:33)
[2017-12-16] MEDS: SYMBICORT 160-4.5 MCG INHALER INHALATION SCH ×2 (07:33→19:57)
[2017-12-16] MEDS: LISINOPRIL-HCTZ 20-25 MG 1 EACH TAB PO SCH (08:47)
[2017-12-16] MEDS: POLYETHYLENE GLYCOL 3350 17 GM POWD.PACK PO SCH (08:47)
[2017-12-16] MEDS: DORZOLAMIDE HCL 2% DROPS 10 ML BTL BOTH EYES SCH ×2 (08:47→20:18)
[2017-12-16] MEDS: MONTELUKAST 10 MG TAB PO SCH (08:47)
[2017-12-16] MEDS: CLOPIDOGREL 75 MG TAB PO SCH (08:47)
[2017-12-16] MEDS: ASPIRIN 325 MG TAB PO SCH (08:47)
[2017-12-16] MEDS: DOCUSATE 100 MG CAP PO SCH ×2 (08:47→20:18)
[2017-12-16] MEDS: FERROUS SULFATE 325 MG TAB PO SCH (08:47)
[2017-12-16] MEDS: BRIMONIDINE TARTRATE 0.2% DROPS 5 ML BTL BOTH EYES SCH ×2 (08:47→20:19)
[2017-12-16] MEDS: LATANOPROST 0.005% OPHTH DROPS 2.5 ML BTL BOTH EYES SCH ×2 (08:48→20:18)
[2017-12-16] MEDS ORDERED: INSULIN ASPART 100 UNIT/ML 1 ML 10 ML VIAL SQ ONE (08:59)
--- NOTE | 2017-12-16 09:56 | XR ---
EXAMINATION TYPE: XR chest 2V DATE OF EXAM: 12/16/2017 COMPARISON: Chest x-ray from yesterday and older studies. HISTORY: Shortness of breath TECHNIQUE: Frontal and lateral views of the chest are obtained. FINDINGS: Evaluation slightly suboptimal secondary to patient's large body habitus. There is chronic parenchymal change without suspicious new focal air space opacity or pneumothorax seen. Blunting of p osterior costophrenic angles is redemonstrated suggesting tiny effusions and/or pleural thickening. T here is associated bibasilar atelectasis and/or scarring. The cardiac silhouette size remains within normal limits. Bridging osteophytes in the thoracic spine are redemonstrated. IMPRESSION: Overall stable findings, tiny bilateral pleural effusions and/or pleural thickening and adjacent bibasilar linear scarring and/or atelectasis. No new infiltrate is seen.
--- NOTE | 2017-12-16 09:58 | XR ---
EXAMINATION TYPE: XR abdomen 2V DATE OF EXAM: 12/16/2017 CLINICAL HISTORY: Generalized abdominal pain and constipation TECHNIQUE: Supine, upright, and left side down lateral decubitus views of the abdomen are obtained. COMPARISON: CT chest abdomen and pelvis from 3 days ago FINDINGS: Nondilated gas-filled stomach is present. There are gas prominent small and large bowel loo ps throughout the abdomen and pelvis. There is no pneumoperitoneum. Multilevel spurring in the spine is present. Moderate joint space loss and spurring in both hips is seen. There is narrowing and scler osis of both sacroiliac joints. IMPRESSION: Overall nonspecific bowel gas pattern favoring ileus.
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
[2017-12-16] MEDS ORDERED: NA PHOS,M-B/NA PHOS,DI-BA 133 ML ENEMA RECTAL ONE (10:15)
[2017-12-16] MEDS ORDERED: BISACODYL 5 MG TABLET.DR PO STA (10:16)
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
[2017-12-16] MEDS: TAMSULOSIN 0.4 MG CAP.ER.24H PO SCH (10:52)
[2017-12-16] MEDS: cefTRIAXone IN SWFI 1,000 MG/10 ML SYRINGE IVP SCH (10:52)
[2017-12-16] MEDS: LACTULOSE 20 GM/30 ML CUP PO SCH ×3 (10:53→20:20)
[2017-12-16] MEDS: CYANOCOBALAMIN 500 MCG TAB PO SCH (10:54)
--- NOTE | 2017-12-16 10:58 | ECHOF ---
Referral Reason:abn trop, syncope MEASUREMENTS -------- HEIGHT: 182.9 cm WEIGHT: 123.4 kg BP: 124/65 IVSd: 1.4 cm (0.6 - 1.1) LVIDd: 4.2 cm (3.9 - 5.3) LVPWd: 1.5 cm (0.6 - 1.1) IVSs: 2.1 cm LVIDs: 2.6 cm LVPWs: 2.0 cm Ao Diam: 3.9 cm (2.0 - 3.7) LA Diam: 3.9 cm (2.7 - 3.8) MV E Montrell: 0.42 m/s MV DecT: 253 ms MV A Montrell: 0.83 m/s MV E/A Ratio: 0.50 RAP: 5.00 mmHg RVSP: 13.69 mmHg FINDINGS -------- Atrial fibrillation. This was a techncally difficult study with suboptimal views, , Lumason utilized for enhancement of im ages. The left ventricular size is normal. There is moderate concentric left ventricular hypertrophy. O verall left ventricular systolic function is normal with, an EF between 55 - 60 %. The right ventricle is normal in size. The left atrial size is normal. The right atrial size is normal. 5.0mg OF Lumason UTLIZED: 2 OR MORE WALL SEGMENTS NOT VISUALIZED. The aortic valve was not well visualized. Mild mitral regurgitation is present. Mild tricuspid regurgitation present. Right ventricular systolic pressure is normal at < 35 mmHg. There is no evidence of pulmonary hypertension. The pulmonic valve was not well visualized. The aortic root size is normal. Echo free space represents a pericardial fat pad. CONCLUSIONS -------- 1. This was a techncally difficult study with suboptimal views, , Lumason utilized for enhancement of images. 2. The left ventricular size is normal. 3. There is moderate concentric left ventricular hypertrophy. 4. Overall left ventricular systolic function is normal with, an EF between 55 - 60 %. 5. The right ventricle is normal in size. 6. The left atrial size is normal. 7. The right atrial size is normal. 8. 5.0mg OF Lumason UTLIZED: 2 OR MORE WALL SEGMENTS NOT VISUALIZED. 9. The aortic valve was not well visualized. 10. Mild mitral regurgitation is present. 11. Mild tricuspid regurgitation present. 12. Right ventricular systolic pressure is normal at < 35 mmHg. 13. There is no evidence of pulmonary hypertension. 14. The pulmonic valve was not well visualized. 15. The aortic root size is normal. 16. Echo free space represents a pericardial fat pad. ROSE GROWER: Ching Dupont RDCS
[2017-12-16 11:16] LABS: Glucose,Whole Blood 373 mg/dL (75-99)
[2017-12-16] MEDS ORDERED: INSULIN ASPART 100 UNIT/ML 1 ML 10 ML VIAL SQ SCH (12:30)
[2017-12-16 16:43] LABS: Glucose,Whole Blood 313 mg/dL (75-99)
[2017-12-16] MEDS: METOPROLOL TARTRATE 25 MG TAB PO SCH ×2 (16:52→20:20)
[2017-12-16] MEDS: methylPREDNISolone SOD SUCCI 40 MG/ML 1 ML VIAL IV SCH (16:58)
[2017-12-16] MEDS: ATORVASTATIN 20 MG TAB PO SCH (20:18)
[2017-12-16] MEDS: guaiFENesin 600 MG TABLET.ER PO SCH (20:19)
[2017-12-16] MEDS ORDERED: INSULIN DETEMIR 100 UNIT/ML 10 ML VIAL SQ SCH (21:00)
[2017-12-16 21:17] LABS: Glucose,Whole Blood 278 mg/dL (75-99)
[2017-12-17] MEDS: methylPREDNISolone SOD SUCCI 40 MG/ML 1 ML VIAL IV SCH ×2 (05:22→05:27)
[2017-12-17] MEDS: HYDROcodone/APAP 7.5-325MG 1 EACH TAB PO PRN ×2 (05:27→12:19)
[2017-12-17 05:59] LABS: Glucose,Whole Blood 301 mg/dL (75-99)
[2017-12-17 06:19] LABS: Basophils % (A) 0 %; Eosinophils % (A) 0 %; HCT 40.3 % (39.0-53.0); HGB 12.7 gm/dL (13.0-17.5); Lymphocytes # (A) 0.7 k/uL (1.0-4.8); Lymphocytes % (A) 5 %; MCHC 31.5 g/dL (31.0-37.0); MCV 91.8 fL (80.0-100.0); Mean Platelet Volume 8.8; Monocytes # (A) 0.7 k/uL (0-1.0); Monocytes % (A) 5 %; Neutrophils # (A) 11.6 k/uL (1.3-7.7); Neutrophils % (A) 89 %; Platelet Count 242 k/uL (150-450); RBC 4.39 m/uL (4.30-5.90); RDW 15.1 % (11.5-15.5)
[2017-12-17 06:44] LABS: Albumin 3.8 g/dL (3.5-5.0); Calcium 8.8 mg/dL (8.4-10.2); Potassium 4.1 mmol/L (3.5-5.1); Total Bilirubin 0.7 mg/dL (0.2-1.3); Total Protein 6.6 g/dL (6.3-8.2)
[2017-12-17] MEDS: PANTOPRAZOLE 40 MG TABLET PO SCH (06:46)
[2017-12-17] MEDS: INSULIN ASPART 100 UNIT/ML 1 ML 10 ML VIAL SQ SCH ×3 (06:59→21:16)
[2017-12-17] MEDS ORDERED: INSULIN REGULAR BOLUS (FROM DRIP BAG) IV ONE (07:35)
[2017-12-17] MEDS ORDERED: methylPREDNISolone SOD SUCCI 40 MG/ML 1 ML VIAL IV SCH (08:00)
[2017-12-17] MEDS: SYMBICORT 160-4.5 MCG INHALER INHALATION SCH ×2 (08:07→20:37)
[2017-12-17] MEDS ORDERED: DIAZEPAM 5 MG TAB PO PRN (08:11)
[2017-12-17] MEDS: CLOPIDOGREL 75 MG TAB PO SCH (08:43)
[2017-12-17] MEDS: guaiFENesin 600 MG TABLET.ER PO SCH ×2 (08:43→20:50)
[2017-12-17] MEDS: FERROUS SULFATE 325 MG TAB PO SCH (08:43)
[2017-12-17] MEDS: LISINOPRIL-HCTZ 20-25 MG 1 EACH TAB PO SCH (08:43)
[2017-12-17] MEDS: POLYETHYLENE GLYCOL 3350 17 GM POWD.PACK PO SCH (08:43)
[2017-12-17] MEDS: TAMSULOSIN 0.4 MG CAP.ER.24H PO SCH (08:43)
[2017-12-17] MEDS: ASPIRIN 325 MG TAB PO SCH (08:43)
[2017-12-17] MEDS: DOCUSATE 100 MG CAP PO SCH ×2 (08:43→20:49)
[2017-12-17] MEDS: BRIMONIDINE TARTRATE 0.2% DROPS 5 ML BTL BOTH EYES SCH ×2 (08:44→20:49)
[2017-12-17] MEDS: DORZOLAMIDE HCL 2% DROPS 10 ML BTL BOTH EYES SCH ×2 (08:44→20:49)
[2017-12-17 11:10] LABS: Glucose,Whole Blood 385 mg/dL (75-99)
[2017-12-17] MEDS: INSULIN REGULAR 100 UNIT in SODIUM CHLORIDE 0.9% 100 ML IV SCH ×2 (11:20→16:25)
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
[2017-12-17] MEDS: SODIUM CHLORIDE 0.9% 1,000 ML IV SCH ×2 (11:35→20:58)
[2017-12-17] MEDS: LACTULOSE 20 GM/30 ML CUP PO SCH ×3 (11:38→20:50)
[2017-12-17] MEDS: CYANOCOBALAMIN 500 MCG TAB PO SCH (11:39)
[2017-12-17] MEDS: MONTELUKAST 10 MG TAB PO SCH (11:39)
[2017-12-17] MEDS: cefTRIAXone IN SWFI 1,000 MG/10 ML SYRINGE IVP SCH (11:39)
[2017-12-17] MEDS: METOPROLOL TARTRATE 25 MG TAB PO SCH ×2 (11:39→20:50)
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
[2017-12-17 12:44] LABS: Glucose,Whole Blood 346 mg/dL (75-99)
--- NOTE | 2017-12-17 13:05 | P.PN ---
Subjective Progress Note Date: 12/17/17 This is a 72-year-old gentleman with history of diabetes, hypertension , hyperlipidemia, coronary artery disease with prior stent placements, patient underwent stenting of the circumflex and right coronary artery in December 2014, he used to follow with Dr. Keita in the office, he now sees Dr. Gupta. Patient presented to the hospital on this occasion after he experienced a fall. He states that he was in his garage, tripped over a bicycle and fell backwards onto his back. He denies hitting his head. He does feel that he lost consciousness for a brief period of time after falling but not prior. Patient denies having any chest discomfort prior to this incident. Cardiology consultation was requested because of abnormal troponins. EKG performed on admission here showed a sinus rhythm with second-degree type I heart block. Subsequent EKG shows a normal sinus rhythm. Upon review of the rhythm strips in the chart, patient is noted to have multiple pauses of up to 3-1/2 seconds. Initial chest x-ray performed on admission here shows atelectatic change in the right lower lobe. Subsequent EKG shows small pleural effusions and pulmonary vascularity has increased slightly as compared with prior exam. Thoracic spine x-ray did not reveal any evidence of acute fracture or dislocation. Computed tomography scan of the abdomen and chest and pelvis was performed which did not reveal any acute osseous fracture, abnormal fluid collection, or evidence of solid organ injury in the thorax abdomen or pelvis. Stable right sided pulmonary nodules are noted, similar as comparison 2016. Bilateral nonobstructing renal calculi and a trace of right pleural effusion. Blood pressure on arrival here 190/80 with a heart rate in the 70s, 94% on room air. Blood pressure this morning 150/80 heart rate in the 70s 92% on 2 L of oxygen. White blood cell count 11.6, hemoglobin 13.8, platelet count 251. Sodium 137, potassium 4.5, BUN 45, creatinine 1.2. Blood glucose levels in the 300 range. Troponins 0.05, 0.03, 0.04, 0.03, 0.02, 0.02. At the time of my examination this morning, patient states earlier he was mildly confused, he is aware of where he is now. Complaining of back discomfort discomfort in his bilateral hips. He denies any dizziness or lightheadedness, mild shortness of breath, no chest discomfort. 12/16/2017 Patient was seen and examined this morning, continues to be in pain however it is somewhat improved from yesterday. TSH came back to be normal. Today the patient is in a sinus rhythm to sinus tachycardia with a heart rate of 112. We will add a small dose of beta deb back to his education regime, at 25 mg one tablet by mouth twice a day. Echocardiogram with Doppler study remains pending is a rather unable to get pitchers yesterday because the patient was unable to lie flat. They did complete the echo today and results are yet pending. It was explained to the patient this morning, that he will need to be put on a small dose of beta deb because of his tachycardia and history of coronary artery disease. If patient again goes back into bradycardia or second- degree heart block, he may require pacemaker down the road. 12/17/2017 Patient was seen and examined this morning, continues to complain of back discomfort, he does say it is somewhat improved today. Hemodynamically he is stable. Blood pressure 134/50 with a heart rate in the 60s. White blood cell count 13.0, hemoglobin 12.7, platelet count 242. Sodium 137, potassium 4.1, BUN 84, creatinine 2.2. Objective - Vital Signs Vital signs: Vital Signs Temp 97.7 F 12/17/17 08:00 Pulse 63 12/17/17 12:00 Resp 16 12/17/17 12:00 BP 155/69 12/17/17 12:00 Pulse Ox 97 12/17/17 12:00 Intake & Output 12/16/17 12/17/17 12/17/17 18:59 06:59 18:59 Intake Total 360 100 120 Output Total 0 200 0 Balance 360 -100 120 Weight 52 kg Intake: Oral 360 100 120 Output: Urine 0 200 Stool 0 0 Other: Voiding Method Urinal Indwelling Catheter Indwelling Catheter # Voids 1 - Exam PHYSICAL EXAMINATION: GENERAL: 72-year-old male, complaining of generalized of back and hip discomfort this morning. HEENT: Head is atraumatic, normocephalic. Pupils equal, round. Sclera anicteric. Conjunctiva are clear. Mucous membranes of the mouth are moist. Neck is supple. There is elevated jugular venous pressure.] No carotid bruit is heard. HEART EXAMINATION: Heart S1 S2 1 systolic murmur is heard. CHEST EXAMINATION: Lungs reveal crackles bilaterally with diminished air entry to the bases. ABDOMEN: Soft, nontender. Bowel sounds are heard. No organomegaly noted. EXTREMITIES: 2+ peripheral pulses with no evidence of peripheral edema and no calf tenderness noted. Positive back and bilateral hip pain NEUROLOGIC patient is awake, alert and oriented OX3. . - Labs CBC & Chem 7: 12/17/17 05:57 12/17/17 05:57 Labs: Abnormal Lab Results - Last 24 Hours (Table) 12/16/17 12/16/17 12/17/17 Range/Units 16:26 21:15 05:51 WBC (3.8-10.6) k/uL Hgb (13.0-17.5) gm/dL Neutrophils # (1.3-7.7) k/uL Lymphocytes # (1.0-4.8) k/uL Chloride (98-107) mmol/L BUN (9-20) mg/dL Creatinine (0.66-1.25) mg/dL Glucose (74-99) mg/dL POC Glucose (mg/dL) 313 H 278 H 301 H (75-99) mg/dL 12/17/17 12/17/17 12/17/17 Range/Units 05:57 05:57 11:05 WBC 13.0 H (3.8-10.6) k/uL Hgb 12.7 L (13.0-17.5) gm/dL Neutrophils # 11.6 H (1.3-7.7) k/uL Lymphocytes # 0.7 L (1.0-4.8) k/uL Chloride 93 L (98-107) mmol/L BUN 84 H* (9-20) mg/dL Creatinine 2.20 H (0.66-1.25) mg/dL Glucose 303 H (74-99) mg/dL POC Glucose (mg/dL) 385 H (75-99) mg/dL 12/17/17 Range/Units 12:43 WBC (3.8-10.6) k/uL Hgb (13.0-17.5) gm/dL Neutrophils # (1.3-7.7) k/uL Lymphocytes # (1.0-4.8) k/uL Chloride (98-107) mmol/L BUN (9-20) mg/dL Creatinine (0.66-1.25) mg/dL Glucose (74-99) mg/dL POC Glucose (mg/dL) 346 H (75-99) mg/dL Assessment and Plan Plan: Assessment and plan #1 fall with possible syncope. Evidence of second-degree type I heart block on initial EKG. Patient also noted to have pauses of up to 3-1/2 seconds. #2 known history of coronary artery disease with prior circumflex and RCA stenting in 2015 #3 hypertension #4 diabetes, uncontrolled #5 hyperlipidemia #6 mild renal insufficiency #7 abnormal troponin, not consistent with acute coronary syndrome, patient denies any symptoms of chest discomfort. Plan From cardiology's perspective, we will continue the patient on current dose of beta deb. We will follow along with you now on an as-needed basis only, we recommended once the patient is discharged home that he have a vent monitor placed. These don't hesitate to call us with any questions. DNP note has been reviewed, I agree with a documented findings and plan of care. Patient was seen and examined.
[2017-12-17 13:47] LABS: Glucose,Whole Blood 307 mg/dL (75-99)
[2017-12-17] MEDS: IPRATROPIUM-ALBUTEROL 3 ML NEB INHALATION PRN (14:27)
--- NOTE | 2017-12-17 14:32 | P.GSCN ---
History of Present Illness Consult date: 12/17/17 History of present illness: 72-year-old male being seen at the request of the attending for a surgical eval possible ileus. Patient's initial presentation to the emergency room after patient reportedly had fallen after tripping over a bicycle landing on his back. According to the patient had not had a bowel movement in several days after the event. At the time of this examination patient states he did have a bowel movement yesterday. Reports no nausea vomiting. Abdomen is firm with active bowel tones currently the patient is denying abdominal pain when questioning patient has significant weakness involving the bilateral lower extremities according to the patient this is new prior to falling he was able take care of his dog and monitor his garden able to ambulate without difficulty really is sitting up in bed taking a diet computed tomography scan abdomen and pelvis done on December 13 report indicate no acute fracture no dilatation of the larger small bowel no evidence of an obstruction a moderate amount of retained right hemicolon stool patient has a past medical history of COPD, diabetes, hyperlipidemia, osteoarthritis and obesity and hypertension patient is known to service on May 21 2017 patient did undergo robotic-assisted repair of incarcerated ventral hernia currently the patient is being followed by cardiology. Orthopedic eval was done this morning as well recommended an MRI as part of their workup for acute severe debilitating thoracolumbar pain with left lower extremity weakness. Patient currently refused to have the MRI did note the CT of scan of the abdomen pelvis and chest report was reviewed multilevel moderate to severe degenerative disc disease noted and thoracic spine multilevel degenerative changes noted no fracture of the pelvis or the hips noted Review of Systems Essentially unremarkable except as mentioned in the present illness Past Medical History Past Medical History: Coronary Artery Disease (CAD), COPD, Diabetes Mellitus, Eye Disorder ([place]), Hyperlipidemia, Hypertension, Myocardial Infarction ([place]), Osteoarthritis (OA), Renal Disease Additional Past Medical History / Comment(s): "medical history per pt", left leg wound, kidney stone. Glaucoma Last Myocardial Infarction Date:: 12/14/2014 History of Any Multi-Drug Resistant Organisms: None Reported Past Surgical History: Ear Surgery, Heart Catheterization With Stent, Hernia Repair Additional Past Surgical History / Comment(s): Cataracts, chronic low back pain Past Anesthesia/Blood Transfusion Reactions: No Reported Reaction Date of Last Stent Placement:: 2011 Past Psychological History: No Psychological Hx Reported Smoking Status: Former smoker Past Alcohol Use History: None Reported Past Drug Use History: None Reported - Past Family History Father History Unknown: Yes Mother Family Medical History: Diabetes Mellitus Medications and Allergies Home Medications Medication Instructions Recorded Confirmed Type Insulin Glargine [Lantus] 120 unit SQ HS 12/14/14 12/13/17 History Latanoprost Ophth [Xalatan 0.005%] 1 drops BOTH EYES HS 12/14/14 12/13/17 History glipiZIDE [Glucotrol] 20 mg PO BID 12/14/14 12/13/17 History Albuterol Inhaler [Ventolin Hfa 2 puff INHALATION RT-Q6H PRN 05/13/17 12/13/17 History Inhaler] Budesonide-Formot 160-4.5 Mcg 2 puff INHALATION RT-BID 05/13/17 12/13/17 History [Symbicort 160-4.5 Mcg Inhaler] Clopidogrel [Plavix] 75 mg PO DAILY 05/13/17 12/13/17 History Cyanocobalamin [Vitamin B-12] 500 mcg PO DAILY 05/13/17 12/13/17 History Lisinopril-Hctz 20-25 mg 1 tab PO DAILY 05/13/17 12/13/17 History [Zestoretic 20-25] Montelukast [Singulair] 10 mg PO DAILY 05/13/17 12/13/17 History Docusate [Colace] 100 mg PO BID #20 capsule 05/21/17 12/13/17 Rx HYDROcodone/APAP 7.5-325MG [[place] 1 each PO Q4H PRN #30 tab 05/21/17 12/13/17 Rx 7.5] Atorvastatin [Lipitor] 20 mg PO HS 12/13/17 12/13/17 History Brimonidine Tartrate [Alphagan P 1 drops BOTH EYES BID 12/13/17 12/13/17 History 0.2% Ophth Soln] Dextrose Chew [Glucose Chew Tab] 4 - 12 gm PO ONCE PRN 12/13/17 12/13/17 History Dorzolamide 2% [Trusopt 2%] 1 drops BOTH EYES BID 12/13/17 12/13/17 History Ferrous Sulfate [Feosol] 325 mg PO DAILY 12/13/17 12/13/17 History Insulin Aspart [NovoLOG Flexpen] See Protocol SQ ACHS 12/13/17 12/13/17 History Ipratropium-Albuterol Nebulize 3 ml INHALATION RT-BID PRN 12/13/17 12/13/17 History [Duoneb 0.5 mg-3 mg/3 ml Soln] Metoprolol Tartrate [Lopressor] 75 mg PO BID 12/13/17 12/13/17 History Allergies Allergy/AdvReac Type Severity Reaction Status Date / Time No Known Allergies Allergy Verified 12/13/17 16:37 Surgical - Exam Vital Signs Temp Pulse Resp BP Pulse Ox 98 F 76 18 190/87 94 L 12/13/17 11:40 12/13/17 11:40 12/13/17 11:40 12/13/17 11:40 12/13/17 11:40 GENERAL APPEARANCE: Sitting up in bed taking a diet awake and alert oriented 3 , in no acute distress. VITAL SIGNS: Reviewed HEENT: Head is normocephalic and atraumatic. Pupils are equal and reactive. The nares are patent. Oropharynx is clear without lesions. NECK: Supple without lymphadenopathy. Traches midline. HEART: S1, S2. Regular rate and rhythm. No murmur noted denying chest pain LUNGS: No crackles or wheezes are heard. Adequate air movement ABDOMEN: Soft, nontender, mildly distended with active bowel tones noted currently denying abdominal pain no nausea no vomiting tolerating diet No peritoneal signs. No palpable organomegaly or masses. Indwelling [place] catheter in place EXTREMITIES: Normal skin color and turgor. No cyanosis, rash, ulceration, clubbing or edema. Radial pedal pulses are 2/4 bilaterally. Weakness to the left lower extremity cannot lift leg off the bed. Able to lift the right leg off the bed no calf tenderness straight leg negative bilateral to lower extremities recent states not able to ambulate NEUROLOGICAL: Awake and alert no deficit noted Results Impression Present on admission intractable lower back and hip pain after a fall 3 days prior Urinary retention requiring indwelling [place] catheter insertion Constipation with a computed tomography scan abdomen and pelvis on admission showing moderate amount retained right hemicolon stool Obesity BMI 31 Evidence of second-degree type I AV block with pauses cardiology following Abnormal troponins acute coronary syndrome ruled out History of an incarcerated ventral hernia with robotic assist repair of incarcerated ventral hernia done on 05/21/2017 Plan Continue with the bowel stimulant as ordered IV fluid as ordered No evidence of an acute surgical abdomen Will follow with you with further surgical recommendations pending clinical course DVT and GI prophylaxis Continue lactulose 30 g 3 times a day, Colace as ordered, MiraLAX as ordered Surgical consultation note dictated for The above impression and plan of care have been discussed and directed by signing physician. Eleni Hui nurse practitioner acting as scribe for signing physician. - Labs 12/17/17 05:57 12/17/17 05:57 Abnormal Lab Results - Last 24 Hours (Table) 12/16/17 12/16/17 12/17/17 Range/Units 16:26 21:15 05:51 WBC (3.8-10.6) k/uL Hgb (13.0-17.5) gm/dL Neutrophils # (1.3-7.7) k/uL Lymphocytes # (1.0-4.8) k/uL Chloride (98-107) mmol/L BUN (9-20) mg/dL Creatinine (0.66-1.25) mg/dL Glucose (74-99) mg/dL POC Glucose (mg/dL) 313 H 278 H 301 H (75-99) mg/dL 12/17/17 12/17/17 12/17/17 Range/Units 05:57 05:57 11:05 WBC 13.0 H (3.8-10.6) k/uL Hgb 12.7 L (13.0-17.5) gm/dL Neutrophils # 11.6 H (1.3-7.7) k/uL Lymphocytes # 0.7 L (1.0-4.8) k/uL Chloride 93 L (98-107) mmol/L BUN 84 H* (9-20) mg/dL Creatinine 2.20 H (0.66-1.25) mg/dL Glucose 303 H (74-99) mg/dL POC Glucose (mg/dL) 385 H (75-99) mg/dL 12/17/17 12/17/17 Range/Units 12:43 13:45 WBC (3.8-10.6) k/uL Hgb (13.0-17.5) gm/dL Neutrophils # (1.3-7.7) k/uL Lymphocytes # (1.0-4.8) k/uL Chloride (98-107) mmol/L BUN (9-20) mg/dL Creatinine (0.66-1.25) mg/dL Glucose (74-99) mg/dL POC Glucose (mg/dL) 346 H 307 H (75-99) mg/dL Diabetes panel 12/17/17 Range/Units 05:57 Sodium 137 (137-145) mmol/L Potassium 4.1 (3.5-5.1) mmol/L Chloride 93 L (98-107) mmol/L Carbon Dioxide 27 (22-30) mmol/L BUN 84 H* (9-20) mg/dL Creatinine 2.20 H (0.66-1.25) mg/dL Glucose 303 H (74-99) mg/dL Calcium 8.8 (8.4-10.2) mg/dL AST 44 (17-59) U/L ALT 50 (21-72) U/L Alkaline Phosphatase 68 (38-126) U/L Total Protein 6.6 (6.3-8.2) g/dL Albumin 3.8 (3.5-5.0) g/dL Calcium panel 12/17/17 Range/Units 05:57 Calcium 8.8 (8.4-10.2) mg/dL Albumin 3.8 (3.5-5.0) g/dL Pituitary panel 12/17/17 Range/Units 05:57 Sodium 137 (137-145) mmol/L Potassium 4.1 (3.5-5.1) mmol/L Chloride 93 L (98-107) mmol/L Carbon Dioxide 27 (22-30) mmol/L BUN 84 H* (9-20) mg/dL Creatinine 2.20 H (0.66-1.25) mg/dL Glucose 303 H (74-99) mg/dL Calcium 8.8 (8.4-10.2) mg/dL Adrenal panel 12/17/17 Range/Units 05:57 Sodium 137 (137-145) mmol/L Potassium 4.1 (3.5-5.1) mmol/L Chloride 93 L (98-107) mmol/L Carbon Dioxide 27 (22-30) mmol/L BUN 84 H* (9-20) mg/dL Creatinine 2.20 H (0.66-1.25) mg/dL Glucose 303 H (74-99) mg/dL Calcium 8.8 (8.4-10.2) mg/dL Total Bilirubin 0.7 (0.2-1.3) mg/dL AST 44 (17-59) U/L ALT 50 (21-72) U/L Alkaline Phosphatase 68 (38-126) U/L Total Protein 6.6 (6.3-8.2) g/dL Albumin 3.8 (3.5-5.0) g/dL
[2017-12-17 14:46] LABS: Glucose,Whole Blood 306 mg/dL (75-99)
--- NOTE | 2017-12-17 15:32 | CONS ---
CONSULTATION REASON FOR CONSULT: Renal failure. HISTORY OF PRESENT ILLNESS: Patient is a 72-year-old male who was admitted to the hospital on 12/13/2017 after a fall. Patient stated that he had tripped. He had been feeling weak and he fell backwards. He did not hit his head. The patient denies any syncope. Blood sugar was elevated at the time of admission. Patient denies any prior history of kidney diseases. His serum creatinine on admission was 0.9 mg/dL. It went up to 1.3 yesterday and today it is at 2.2. The blood pressure was low yesterday with systolic about 94 mmHg. The patient is maintained on ROMINA inhibitors. The patient did have a chest and abdominal CT scan which was done with dye on the day of admission on 12/13/2017. The patient had been voiding, but it looks like an indwelling [place] catheter is placed. He did have some urine retention. PAST MEDICAL HISTORY: Significant for type 2 diabetes, hypertension, coronary artery disease, COPD, hyperlipidemia, history of IA, history of kidney stones, glaucoma. PAST SURGICAL HISTORY: Cardiac catheterization, hernia repair, cataract surgery, ear surgery. SOCIAL HISTORY: Patient is a former smoker. No history of drug abuse or alcohol abuse. MEDICATIONS: Medications at home prior to admission included insulin, Ventolin, Plavix, Singulair, Colace, Lipitor, iron, Lopressor. ALLERGIES: None. REVIEW OF SYSTEMS: As per HPI. Other systems negative. PHYSICAL EXAMINATION: Patient is currently comfortable, awake. He is not in any acute distress. Blood pressure is 155/69, heart rate 63 per minute. Patient is afebrile. Examination of the heart S1, S2. Examination of the lungs bilateral breath sounds are heard. Abdomen is soft, nontender. Examination of lower extremities shows no significant edema. [employer] exam is grossly intact. LAB: Show sodium 137, potassium 4.1, chloride 93, BUN 84, serum creatinine 2.2, hemoglobin 12.7 g/dL. UA on December 13, showed 2+ protein, 4+ glucose. Blood trace. The CT scan showed evidence of bilateral nephrolithiasis with no hydronephrosis. An echocardiogram done this admission showed ejection fraction 55-60%. ASSESSMENT: 1. Acute kidney injury, acute tubular necrosis secondary to contrast nephropathy as well as hypotension and hypoperfusion. Blood pressure was as low as 94 mmHg. I will discontinue the ROMINA inhibitors and we may need to start IV fluids as well. The patient does have an indwelling [place] catheter. He did have some urine retention which definitely contributed to the acute kidney injury as well. I will continue with the catheter for now. The patient is not on any other nephrotoxic medications. We will repeat labs in a.m. 2. Chronic kidney disease with evidence of proteinuria. Serum creatinine 0.9 at the time of admission, most likely secondary to underlying diabetic kidney disease. 3. Back pain, currently improved. 4. Coronary artery disease with previous history of coronary stenting in 2014. 5. Constipation. 6. Urine retention with indwelling [place] catheter. 7. Type 2 diabetes. PLAN: Hold off on ROMINA inhibitors. Start IV fluids and avoid any other nephrotoxic agents. The patient will need followup as outpatient for CKD as he does have significant proteinuria and most likely underlying diabetic kidney disease. Thank you for this consultation. We will continue to follow the patient with you during his hospitalization. BRAIN / JUANA: [id number] /
[2017-12-17] MEDS ORDERED: HALOPERIDOL LACTATE 5 MG/ML 1 ML VIAL IVP PRN (15:45)
[2017-12-17 15:54] LABS: Glucose,Whole Blood 249 mg/dL (75-99)
[2017-12-17 17:10] LABS: Glucose,Whole Blood 196 mg/dL (75-99)
[2017-12-17 18:18] LABS: Glucose,Whole Blood 190 mg/dL (75-99)
--- NOTE | 2017-12-17 18:53 | CT ---
EXAMINATION TYPE: CT thor lumbar spine wo con DATE OF EXAM: 12/17/2017 COMPARISON: None HISTORY: Fall with back pain. CT DLP: 1888.5 mGycm Automated exposure control for dose reduction was used. FINDINGS: There is extension deformity of the spine at the T11-12 level. There is a transverse fracture through the T12 vertebral body with separation anteriorly of the fragments of almost 2 cm. There is also pos terior element deformity at T12 level consistent with impacted fractures. There is ankylotic change t hroughout the thoracic and lumbar spine. This appearance is consistent with long standing ankylosing spondylitis. There is some infiltrate and atelectasis at the right lung base and to a lesser extent the left poste rior lung base. IMPRESSION: ADVANCED CHANGES OF ANKYLOSING SPONDYLITIS IN THE THORACIC AND LUMBAR SPINE. FRACTURE OF T12 VERTEBRAL BODY WITH REVERSE WEDGE DEFORMITY AND EXTENSION DEFORMITY AT THE T12 LEVEL. THIS DEFORMITY IS NEW COMPARED TO THE THORACIC SPINE X-RAY OF 12/13/2017.
[2017-12-17 19:24] LABS: Glucose,Whole Blood 210 mg/dL (75-99)
[2017-12-17] MEDS ORDERED: AZITHROMYCIN 500 MG in DEXTROSE 5% IN WATER 250 ML IVPB SCH ×2 (20:00)
[2017-12-17 20:01] LABS: Glucose,Whole Blood 222 mg/dL (75-99)
[2017-12-17] MEDS: LATANOPROST 0.005% OPHTH DROPS 2.5 ML BTL BOTH EYES SCH (20:49)
[2017-12-17] MEDS: ATORVASTATIN 20 MG TAB PO SCH (20:49)
[2017-12-17] MEDS: HYDROcodone/APAP 10-325MG 1 EACH TAB PO PRN (20:58)
[2017-12-17] MEDS ORDERED: INSULIN DETEMIR 100 UNIT/ML 10 ML VIAL SQ SCH (21:00)
[2017-12-17 21:03] LABS: Glucose,Whole Blood 236 mg/dL (75-99)
[2017-12-18 05:52] LABS: Glucose,Whole Blood 252 mg/dL (75-99)
[2017-12-18 06:32] LABS: Basophils % (A) 0 %; Eosinophils % (A) 0 %; HCT 35.1 % (39.0-53.0); HGB 11.5 gm/dL (13.0-17.5); Lymphocytes # (A) 0.9 k/uL (1.0-4.8); Lymphocytes % (A) 9 %; MCH 30.2 pg (25.0-35.0); MCHC 32.7 g/dL (31.0-37.0); MCV 92.2 fL (80.0-100.0); Mean Platelet Volume 8.2; Monocytes # (A) 0.8 k/uL (0-1.0); Monocytes % (A) 8 %; Neutrophils # (A) 7.7 k/uL (1.3-7.7); Neutrophils % (A) 81 %; Platelet Count 220 k/uL (150-450); RBC 3.81 m/uL (4.30-5.90); WBC 9.6 k/uL (3.8-10.6)
[2017-12-18] MEDS: INSULIN ASPART 100 UNIT/ML 1 ML 10 ML VIAL SQ SCH ×3 (06:53→16:37)
[2017-12-18] MEDS: PANTOPRAZOLE 40 MG TABLET PO SCH (06:53)
[2017-12-18] MEDS: HYDROcodone/APAP 10-325MG 1 EACH TAB PO PRN ×2 (06:53→15:04)
[2017-12-18 06:58] LABS: Albumin 3.1 g/dL (3.5-5.0); Calcium 7.8 mg/dL (8.4-10.2); Magnesium 2.9 mg/dL (1.6-2.3); Potassium 3.8 mmol/L (3.5-5.1); Total Bilirubin 0.5 mg/dL (0.2-1.3); Total Protein 5.4 g/dL (6.3-8.2)
[2017-12-18] MEDS: SYMBICORT 160-4.5 MCG INHALER INHALATION SCH (07:37)
[2017-12-18] MEDS: IPRATROPIUM-ALBUTEROL 3 ML NEB INHALATION PRN ×3 (07:39→16:07)
[2017-12-18] MEDS: DOCUSATE 100 MG CAP PO SCH (08:06)
[2017-12-18] MEDS: POLYETHYLENE GLYCOL 3350 17 GM POWD.PACK PO SCH (08:07)
[2017-12-18] MEDS: FERROUS SULFATE 325 MG TAB PO SCH (08:13)
[2017-12-18] MEDS: MONTELUKAST 10 MG TAB PO SCH (08:13)
[2017-12-18] MEDS: CLOPIDOGREL 75 MG TAB PO SCH (08:13)
[2017-12-18] MEDS: cefTRIAXone IN SWFI 1,000 MG/10 ML SYRINGE IVP SCH (08:13)
[2017-12-18] MEDS: ASPIRIN 325 MG TAB PO SCH (08:13)
[2017-12-18] MEDS: CYANOCOBALAMIN 500 MCG TAB PO SCH (08:13)
[2017-12-18] MEDS: METOPROLOL TARTRATE 25 MG TAB PO SCH (08:13)
[2017-12-18] MEDS: guaiFENesin 600 MG TABLET.ER PO SCH (08:13)
[2017-12-18] MEDS: TAMSULOSIN 0.4 MG CAP.ER.24H PO SCH (08:13)
[2017-12-18] MEDS: BRIMONIDINE TARTRATE 0.2% DROPS 5 ML BTL BOTH EYES SCH (08:14)
[2017-12-18] MEDS: SODIUM CHLORIDE 0.9% 1,000 ML IV SCH (08:14)
[2017-12-18] MEDS: DORZOLAMIDE HCL 2% DROPS 10 ML BTL BOTH EYES SCH (08:14)
[2017-12-18 08:15] VITALS: RESP 20
[2017-12-18] MEDS ORDERED: predniSONE 10 MG TAB PO SCH (09:00)
[2017-12-18 11:27] LABS: Glucose,Whole Blood 236 mg/dL (75-99)
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
--- NOTE | 2017-12-18 12:44 | CDI ---
Last Revision, May 2017 Documentation Clarification Form Date: 12/18/17 From: Cortney Luu RN Admit Date: 12/15/2017 5:53:00 PM Patient Name: Gui Monahan Visit Number: [id number] ATTENTION: The Clinical Documentation Specialists (CDI) and [facility] Coding Staff appreciate your assistance in clarifying documentation. Please respond to the clarification below the line at the bottom and electronically sign. The CDI & [facility] Coding staff will review the response and follow-up if needed. Please note: Queries are made part of the Legal Health Record. If you have any questions, please contact the author of this message via ITS. Dr. Ame Turner, Patient presented with a fall. On 12/17 in your documentation it states "Acute kidney injury, acute tubular necrosis secondary to contrast nephropathy as well as hypotension and hypoperfusion" and "Chronic kidney disease with evidence of proteinuria, Serum creatinine 0.9 at the time of admission, most likely secondary to underlying diabetic kidney disease." History/Risk Factors:CAD, COPD, DM, HTN, NM, OA, hyperlipidemia, renal disease, heart cath with stent, x smoker, obese Clinical Indicators: On Admission: BUN 29, CR 0.90, GFR 86 Current BUN 82, CR1.70, GFR 40 Treatment: IVF: bolus x 1 In order to capture the severity of condition, please clarify if the condition signifies: CKD Stage 1 (GFR > 90) CKD Stage 2 (GFR 60-89) CKD Stage 3 (GFR 30-59) Other, please specify Unable to determine Please continue to document in your progress notes, under the line below and/or in the discharge summary in order to capture severity of illness and risk of mortality. Include clinical findings that support your diagnosis. ckd stage 3 MTDD
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
--- NOTE | 2017-12-18 12:57 | P.PN ---
Progress Note - Text Progress Note Date: 12/18/17 The patient is resting comfortably in his chair. He has some mild abdominal distention. He has some minimal pain. On exam his vital signs are stable. His abdomen soft. There is no rebound or guarding. There is known to peritoneal signs. No surgical intervention planned. Patient is Being currently worked up for his renal failure.
[2017-12-18] MEDS ORDERED: ALBUTEROL NEBULIZED 2.5 MG/3 ML INHALATION PRN ×2 (13:37→13:52)
--- NOTE | 2017-12-18 14:27 | P.HPOR ---
History of Present Illness H&P Date: 12/18/17 Chief Complaint: Thoracic back pain and weakness in his lower extremities The patient is seen and examined today at bedside. He is a 72-year-old man who is new to our service. He was admitted on 12/13/2017 after sustaining a fall at home and had severe back pain. He has long history of cardiac issues with history of cardiac stents placed in 2014. He had [facility] following [facility] past. He is unsure if he lost consciousness when he fell. He says that he is normally a community ambulator and was cleaning up around his yard when he fell in his garage. He denied any chest pains. He has history of ongoing shortness of breath due to underlying COPD. His history of low back pain intermittently takes [place] for this. He denies any history of problems in his lower extremities that is having now. He says his back pain is severe at his middle of his back and keeps him from moving around at all in bed. He is unable to lay flat due to his pain. He also says he is unable to move his legs. He is having new issues in his lower extremity is with weakness which had not been present before. He says they have been having to catheterize him to urinate as he has not been able to go on his own. He says that he cannot go on his only lays in bed and he has not been able to stand up. He said that he had a bowel movement last night which was the first, he had in the past 10 days. He says he did not feel the bowel movement happening while he is in bed. He normally helps take care of his at home who has MS and is in a wheelchair. He denies any recent travel or any fevers chills. He feels his symptoms have been getting worse. Hospital. Review of Systems Currently denies any chest pain. Complains of pain at his mid back and numbness in his lower extremities bilaterally. His left leg feels more numb than his right leg. He denies any pain in his neck or his arms. His history of cardiac issues and history of myocardial infarction in 2014. He has history of low back pain for which she occasionally takes [place]. Past Medical History Past Medical History: Coronary Artery Disease (CAD), COPD, Diabetes Mellitus, Eye Disorder ([place]), Hyperlipidemia, Hypertension, Myocardial Infarction ([place]), Musculoskeletal Disorder (Ankylosing spondylitis, chronic low back pain), Osteoarthritis (OA), Renal Disease Additional Past Medical History / Comment(s): "medical history per pt", left leg wound, kidney stone. Glaucoma Last Myocardial Infarction Date:: 12/14/2014 History of Any Multi-Drug Resistant Organisms: None Reported Past Surgical History: Ear Surgery, Heart Catheterization With Stent, Hernia Repair Additional Past Surgical History / Comment(s): Cataracts, chronic low back pain Past Anesthesia/Blood Transfusion Reactions: No Reported Reaction Date of Last Stent Placement:: 2011 Past Psychological History: No Psychological Hx Reported Smoking Status: Former smoker Past Alcohol Use History: None Reported Past Drug Use History: None Reported - Past Family History Father History Unknown: Yes Mother Family Medical History: Diabetes Mellitus Medications and Allergies Home Medications Medication Instructions Recorded Confirmed Type Insulin Glargine [Lantus] 120 unit SQ HS 12/14/14 12/13/17 History Latanoprost Ophth [Xalatan 0.005%] 1 drops BOTH EYES 12/14/14 12/13/17 History glipiZIDE [Glucotrol] 20 mg PO BID 12/14/14 12/13/17 History Albuterol Inhaler [Ventolin Hfa 2 puff INHALATION RT-Q6H PRN 05/13/17 12/13/17 History Inhaler] Budesonide-Formot 160-4.5 Mcg 2 puff INHALATION RT-BID 05/13/17 12/13/17 History [Symbicort 160-4.5 Mcg Inhaler] Clopidogrel [Plavix] 75 mg PO DAILY 05/13/17 12/13/17 History Cyanocobalamin [Vitamin B-12] 500 mcg PO DAILY 05/13/17 12/13/17 History Lisinopril-Hctz 20-25 mg 1 tab PO DAILY 05/13/17 12/13/17 History [Zestoretic 20-25] Montelukast [Singulair] 10 mg PO DAILY 05/13/17 12/13/17 History Docusate [Colace] 100 mg PO BID #20 capsule 05/21/17 12/13/17 Rx HYDROcodone/APAP 7.5-325MG [[place] 1 each PO Q4H PRN #30 tab 05/21/17 12/13/17 Rx 7.5] Atorvastatin [Lipitor] 20 mg PO HS 12/13/17 12/13/17 History Brimonidine Tartrate [Alphagan P 1 drops BOTH EYES BID 12/13/17 12/13/17 History 0.2% Ophth Soln] Dextrose Chew [Glucose Chew Tab] 4 - 12 gm PO ONCE PRN 12/13/17 12/13/17 History Dorzolamide 2% [Trusopt 2%] 1 drops BOTH EYES BID 12/13/17 12/13/17 History Ferrous Sulfate [Feosol] 325 mg PO DAILY 12/13/17 12/13/17 History Insulin Aspart [NovoLOG Flexpen] See Protocol SQ ACHS 12/13/17 12/13/17 History Ipratropium-Albuterol Nebulize 3 ml INHALATION RT-BID PRN 12/13/17 12/13/17 History [Duoneb 0.5 mg-3 mg/3 ml Soln] Metoprolol Tartrate [Lopressor] 75 mg PO BID 12/13/17 12/13/17 History Allergies Allergy/AdvReac Type Severity Reaction Status Date / Time No Known Allergies Allergy Verified 12/13/17 16:37 Physical Examination Osteopathic Statement: *. No significant issues noted on an osteopathic structural exam other than those noted in the History and Physical/Consult. - L Spine: dermatomal strength & reflexes bilateral Strength: hip flexion: 0/5 (He has severe pain in his back with any motion. He is morbidly obese. At his lower extremities he is able to move his hip slightly on the right side with 2 out of 5 strength. On the left side there is no active motion at his hip knee ankle foot or toes. He does not have any active motion in his knee ankle foot or toes on the right. He has occasional twitches which are involuntary for him on his left lower extremity. He has decreased sensation in his left inner thigh. His sensation is intact at his lower legs. He has sensations intact at his abdomen and chest. He has decreased sensation around his perianal area. There is no hyperreflexia. There is no clonus. His upper extremity is have adequate active and passive range of motion. His neck is nontender to palpation. At his back he has tenderness to palpation over his thoracic lumbar junction. There are no open wounds currently.) Results - Labs Labs: Abnormal Lab Results - Last 24 Hours (Table) 12/17/17 12/17/17 12/17/17 Range/Units 14:44 15:42 16:58 RBC (4.30-5.90) m/uL Hgb (13.0-17.5) gm/dL Hct (39.0-53.0) % Lymphocytes # (1.0-4.8) k/uL BUN (9-20) mg/dL Creatinine (0.66-1.25) mg/dL Glucose (74-99) mg/dL POC Glucose (mg/dL) 306 H 249 H 196 H (75-99) mg/dL Calcium (8.4-10.2) mg/dL Magnesium (1.6-2.3) mg/dL Total Protein (6.3-8.2) g/dL Albumin (3.5-5.0) g/dL 12/17/17 12/17/17 12/17/17 Range/Units 18:07 19:22 19:59 RBC (4.30-5.90) m/uL Hgb (13.0-17.5) gm/dL Hct (39.0-53.0) % Lymphocytes # (1.0-4.8) k/uL BUN (9-20) mg/dL Creatinine (0.66-1.25) mg/dL Glucose (74-99) mg/dL POC Glucose (mg/dL) 190 H 210 H 222 H (75-99) mg/dL Calcium (8.4-10.2) mg/dL Magnesium (1.6-2.3) mg/dL Total Protein (6.3-8.2) g/dL Albumin (3.5-5.0) g/dL 12/17/17 12/18/17 12/18/17 Range/Units 21:01 05:51 06:13 RBC 3.81 L (4.30-5.90) m/uL Hgb 11.5 L (13.0-17.5) gm/dL Hct 35.1 L (39.0-53.0) % Lymphocytes # 0.9 L (1.0-4.8) k/uL BUN (9-20) mg/dL Creatinine (0.66-1.25) mg/dL Glucose (74-99) mg/dL POC Glucose (mg/dL) 236 H 252 H (75-99) mg/dL Calcium (8.4-10.2) mg/dL Magnesium (1.6-2.3) mg/dL Total Protein (6.3-8.2) g/dL Albumin (3.5-5.0) g/dL 12/18/17 12/18/17 Range/Units 06:13 11:25 RBC (4.30-5.90) m/uL Hgb (13.0-17.5) gm/dL Hct (39.0-53.0) % Lymphocytes # (1.0-4.8) k/uL BUN 82 H* (9-20) mg/dL Creatinine 1.70 H (0.66-1.25) mg/dL Glucose 233 H (74-99) mg/dL POC Glucose (mg/dL) 236 H (75-99) mg/dL Calcium 7.8 L (8.4-10.2) mg/dL Magnesium 2.9 H (1.6-2.3) mg/dL Total Protein 5.4 L (6.3-8.2) g/dL Albumin 3.1 L (3.5-5.0) g/dL H & H 12/13/17 12/14/17 12/15/17 Range/Units 11:40 05:34 05:50 Hgb 13.1 13.4 13.8 (13.0-17.5) gm/dL Hct 40.8 41.7 43.3 (39.0-53.0) % 12/16/17 12/17/17 12/18/17 Range/Units 05:45 05:57 06:13 Hgb 13.6 12.7 L 11.5 L (13.0-17.5) gm/dL Hct 41.1 40.3 35.1 L (39.0-53.0) % Coagulation 12/13/17 Range/Units 11:40 INR 1.1 (<1.2) Result Diagrams: 12/18/17 06:13 12/18/17 06:13 - Diagnostic results CT Scan - lumbar: report reviewed, image reviewed (He has a computed tomography scan of his thoracic and lumbar spine from as well as from yesterday the . It shows evidence of compression fracture transverse fracture at T12 with extension deformity. There appears to be some disruption the posterior elements as well. He has ankylosing spondylitis globally over his thoracic and lumbar spine. His bridging osteophytes at his thoracic and lumbar spine but there is disruption at T12. 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 Elevated troponins with his cardiac history History of COPD Inability to ambulate Bilateral lower extremity weakness due to spinal cord injury Bowel incontinence due to spinal cord injury Urinary retention due to spinal cord injury Plan: T12 fracture with spinal cord injury and history of ankylosing spondylitis, status post fall The spinal cord injury and fractured due to his new fall that occurred, 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 He has evidence of ankylosing spondylitis and this caused him on segment lever arms which greatly increased his risk of spinal cord injury with his compression fracture. He appears to have spinal cord injury with lower extremity weakness due to this. He has been having worsening symptoms with his spinal cord despite medical management here in Hospital. We're counseled in this regard yesterday and ordered a MRI for him. He was not able to have the MRI as he was unable to lay flat and his overall body habitus. He obtained new computed tomography scan which showed the fracture at T12 where the report was negative for fracture on his prior computed tomography scan from the . With the injury and spinal cord issue I think that an MRI is necessary for him. This may have to be done under sedation. I think that it would be necessary for him to undergo decompression and likely fusion surgery to stabilize the thoracolumbar spine at the level of fracture in order to help his mobilization and potentially give him some chance of healing and improving his spinal cord injury. I think that this would be beyond the scope of our Hospital services here and [facility] given his multiple medical issues including his cardiac issues and COPD. Cardiac he has been seeing him and they are planning on starting him on a pacemaker. He also has been followed closely with medicine and surgery service. He has been on blood thinners with Plavix. Given his multiple medical issues issues and his likely need for surgical intervention for his spinal cord injury and thoracic fracture I think that he would be best served with transfer to a tertiary facility. I discussed this with cardiology service and they agree. We have contacted [facility] for transfer have discussed the case with [facility] and the transfer service and the trauma service. He has been accepted with neurosurgery consultation and further medical management. He 'll continue the transfer process and likely be transferred to [facility] today for definitive care.
[2017-12-18 15:29] VITALS: BP 152/71; TEMP 98.2
[2017-12-18 16:17] VITALS: PULSE 71
[2017-12-18 16:27] LABS: Glucose,Whole Blood 246 mg/dL (75-99)
--- NOTE | 2017-12-18 16:36 | PN ---
PROGRESS NOTE Patient is seen for followup for acute kidney injury. His renal function is improved. Patient is maintained on IV fluids. He has an indwelling catheter with good urine output. PHYSICAL EXAMINATION: Blood pressure is 152/71, heart rate 78 per minute. He is afebrile. Examination of the heart S1, S2. Examination of the lungs bilateral breath sounds are heard. Abdomen is soft, nontender. Examination lower extremities shows trace edema bilaterally. POWER ENGINEER exam is grossly intact. Patient, however, does not do much. He is currently n.p.o. Plans for pacemaker placement. IV fluids are at 75 mL an hour. On examination, blood pressure 152/71, heart rate 78 per minute. Patient is afebrile. Examination of the heart S1, S2. Examination of the lower extremities shows trace edema bilaterally. POWER ENGINEER exam is grossly intact. Patient, however, does not communicate much. He answers to questions appropriately. LABS SHOW: Sodium 137, potassium 3.8, chloride 99, BUN 82, serum creatinine 1.7, hemoglobin 11.5 g/dL. Calcium is 7.8, magnesium 2.9. ASSESSMENT: 1. Acute kidney injury, prerenal, currently improved with IV hydration. I will decrease the IV fluids to about 50 mL an hour. Patient is encouraged to increase oral intake once the pacemaker is done. 2. Heart block scheduled for pacemaker placement. 3. Chronic kidney disease with previous creatinine 0.9 with evidence of proteinuria, most likely secondary to underlying diabetic kidney disease. 4. Urine retention with indwelling [place] catheter. 5. Coronary artery disease with history of coronary artery stenting in 2015. PLAN: Continue to hold off on ROMINA inhibitors. Continue with IV fluids. Decrease rate over 50 mL an hour and repeat labs in a.m. Encourage increased oral intake. MMODL / IJN: [id number] /
== END 2017-12-18 16:54 | disposition short-term general hospital (02) | DRG 551 ==
LOC: EC 11:05 → INTOOBSV 16:06 → 6SEL 16:06 → UNDOADMIN 16:06 → OBSVTOIN 16:06 → 6SEL 12-15 17:53
PROVIDERS: ADMIT Family Medicine; ATTEND Family Medicine
DX: S22.089A Unspecified fracture of T11-T12 vertebra, initial encounter for closed fracture (principal); N17.0 Acute kidney failure with tubular necrosis; J44.9 Chronic obstructive pulmonary disease, unspecified; E11.9 Type 2 diabetes mellitus without complications; E78.5 Hyperlipidemia, unspecified; M19.90 Unspecified osteoarthritis, unspecified site; I12.9 Hypertensive chronic kidney disease with stage 1 through stage 4 chronic kidney disease, or unspecified chronic kidney disease; E11.22 Type 2 diabetes mellitus with diabetic chronic kidney disease; N18.3 Chronic kidney disease, stage 3 (moderate); E11.65 Type 2 diabetes mellitus with hyperglycemia; N14.1 Nephropathy induced by other drugs, medicaments and biological substances; K59.00 Constipation, unspecified; R33.9 Retention of urine, unspecified; M45.9 Ankylosing spondylitis of unspecified sites in spine; M48.10 Ankylosing hyperostosis [Forestier], site unspecified; N20.0 Calculus of kidney; I25.10 Atherosclerotic heart disease of native coronary artery without angina pectoris; I95.9 Hypotension, unspecified; H40.9 Unspecified glaucoma; W01.0XXA Fall on same level from slipping, tripping and stumbling without subsequent striking against object, initial encounter; I44.1 Atrioventricular block, second degree; Y92.015 Private garage of single-family (private) house as the place of occurrence of the external cause; M51.34 Other intervertebral disc degeneration, thoracic region; Z68.35 Body mass index [BMI] 35.0-35.9, adult; Z79.899 Other long term (current) drug therapy; Z79.51 Long term (current) use of inhaled steroids; Z79.4 Long term (current) use of insulin; Z79.02 Long term (current) use of antithrombotics/antiplatelets; I25.2 Old myocardial infarction; Z87.891 Personal history of nicotine dependence; Z95.5 Presence of coronary angioplasty implant and graft; Z83.3 Family history of diabetes mellitus; E66.01 Morbid (severe) obesity due to excess calories
CPT/HCPCS: 36415; 70450; 71046; 71260; 72070; 72125; 72128; 72131; 73521; 74019; 74177; 80048; 80053; 80061; 81001; 82009; 82150; 82550; 82553; 82803; 83036; 83605; 83690; 83735; 84100; 84443; 84484; 85025; 85610; 85730; 93005; 93306; 94640; 94760; 96361; 96374; 96375; 96376; 99285